=== PATIENT | female | born 1950 ===

== ENCOUNTER 2022-11-04 15:41 | Inpatient (IN) | payer OTHER ==
[2022-11-04] VITALS: BP 136/61; PULSE 60; RESP 20; TEMP 98.1; O2SAT 94
[~2022-11-04] VITALS: Ht 170.2 cm; Wt 82.0 kg
[2022-11-04 17:17] LABS: Basophils # (auto) 0 10 ^3/uL (0-0.2); Basophils % (auto) 0.4 % (0.0-2.0); Eosinophils # (auto) 0 10 ^3/uL (0-0.8); Eosinophils % (auto) 0.5 % (0.0-7.0); Hematocrit 39.3 % (36.0-46.0); Hemoglobin 13.1 g/dL (12.2-16.2); Lymphocytes # (auto) 1.3 10 ^3/uL (0.4-5.4); Lymphocytes % (auto) 14.9 % (10.0-50.0); Mean Corpuscular Hemoglobin 31.1 pg (28.0-32.0); Mean Corpuscular Hgb Conc. 33.3 g/dL (32.0-36.0); Mean Corpuscular Volume 93.4 fL (80.0-100.0); Monocytes # (auto) 0.6 10 ^3/uL (0-1.3); Neutrophils # (auto) 6.5 10 ^3/uL (1.6-8.6); Neutrophils % (auto) 77.2 % (37.0-80.0); Nucleated Red Blood Cells % 0.1 %; Red Cell Distribution Width 14.1 % (11.8-14.3); White Blood Cell 8.4 10^3/uL (4.4-10.8)
[2022-11-04 17:20] VITALS: O2SAT 94
[2022-11-04 17:57] LABS: Acetaminophen < 2.0 ug/mL (10-30)
[2022-11-04 17:59] LABS: Albumin 2.8 g/dL (3.4-5.0); Anion Gap 4 (5-15); Blood Alcohol < 3.0 mg/dL (<10); Blood Urea Nitrogen 29 mg/dL (7-18); Calcium 8.3 mg/dL (8.5-10.1); Carbon Dioxide 26 mmol/L (21-32); Chloride 110 mmol/L (98-107); Glucose 122 mg/dL (74-106); Potassium 3.4 mmol/L (3.5-5.1); Sodium 140 mmol/L (136-145)
[2022-11-04 18:02] LABS: Alanine Aminotransferase 11 U/L (13-56); Alkaline Phosphatase 62 U/L (45-117); Aspartate Aminotransferase 22 U/L (15-37); Bilirubin, Total 0.7 mg/dL (0.2-1.0); GFR African American 70 mL/min; GFR Non-African American 58 mL/min; Total Protein 6.6 g/dL (6.4-8.2)
[2022-11-04 18:56] LABS: Urine Bacteria NONE SEEN /hpf (None Seen); Urine Blood Negative /uL (Negative); Urine Hyaline Cast FEW /lpf (0 - 2); Urine Mucus FEW (None Seen); Urine Specific Gravity 1.028 (1.001-1.035); Urine WBC 25 /hpf (0 - 5)
[2022-11-04] MEDS: POTASSIUM CHL 20MEQ/100ML 100 ML IV SCH ×2 (19:07→20:45)
[2022-11-04 19:13] LABS: Amphetamine Screen, Urine NEGATIVE (NEGATIVE); Barbiturate Scree,Urine NEGATIVE (NEGATIVE); Benzodiazephine Screen, Urine POSITIVE (NEGATIVE); Cannabinoid Screen, Urine NEGATIVE (NEGATIVE); Cocaine Screen, Urine NEGATIVE (NEGATIVE)
[2022-11-04 19:15] VITALS: PULSE 59; RESP 20; O2SAT 93
[2022-11-04 19:15] LABS: Alcohol, Urine < 3.0 mg/dL (0-10); Opiate Scree,Urine NEGATIVE (NEGATIVE); Phencyclidine Screen, Urine NEGATIVE (NEGATIVE)
[2022-11-04] MEDS ORDERED: FUROSEMIDE 40 MG/4 ML VIAL IV ONE (20:30)
[2022-11-04] MEDS ORDERED: ONDANSETRON HCL 4 MG/2 ML VIAL IV PRN (22:00)
[2022-11-04] MEDS ORDERED: ALBUTEROL SULF 2.5 MG/0.5ML(0.5%) NEB SOLN NEB PRN (22:00)
[2022-11-04] MEDS ORDERED: POTASSIUM CHL 20MEQ/100ML 100 ML IV ONE (22:00)
[2022-11-04] MEDS ORDERED: AZITHROMYCIN 500MG/ 250ML 250 ML IV ONE (22:00)
[2022-11-04] MEDS ORDERED: cefTRIAXone 1GM/50ML D5W 50 ML IV ONE (22:00)
[2022-11-04] MEDS: CARBIDOPA W LEVODOPA 25/100mg TABLET PO SCH (23:01)
[2022-11-04] MEDS: DONEPEZIL HYDROCHLORIDE 5 MG TAB PO SCH (23:01)
[2022-11-05] VITALS (9 sets, daily range): BP systolic 134–156; BP diastolic 67–91; PULSE 55–66; RESP 16–18; TEMP 97.4–98.8; O2SAT 92–96
[2022-11-05] MEDS: CARBIDOPA W LEVODOPA 25/100mg TABLET PO SCH ×3 (05:49→23:28)
[2022-11-05] MEDS ORDERED: ESCI1TAB37 PO (06:09)
[2022-11-05] MEDS ORDERED: FAMO40TA7 PO (06:09)
[2022-11-05] MEDS ORDERED: NAP500T PO (06:09)
[2022-11-05] MEDS ORDERED: MECL1TAB32 PO (06:09)
[2022-11-05] MEDS ORDERED: MET25T PO (06:09)
[2022-11-05] MEDS ORDERED: ARIP1TAB58 PO (06:09)
[2022-11-05] MEDS ORDERED: RASA1TAB4 PO (06:09)
[2022-11-05] MEDS ORDERED: DONE1TAB88 PO (06:09)
[2022-11-05] MEDS ORDERED: CARB25TA77 (06:09)
[2022-11-05] MEDS ORDERED: PRAM0.752 (06:09)
[2022-11-05] MEDS ORDERED: TIZA-142 PO (06:09)
[2022-11-05] MEDS ORDERED: ALPR0.254 PO (06:09)
[2022-11-05] MEDS ORDERED: ENTA200T4 PO (06:09)
[2022-11-05 06:25] LABS: Basophils # (auto) 0 10 ^3/uL (0-0.2); Basophils % (auto) 0.3 % (0.0-2.0); Eosinophils # (auto) 0.1 10 ^3/uL (0-0.8); Eosinophils % (auto) 1.4 % (0.0-7.0); Hematocrit 36.7 % (36.0-46.0); Hemoglobin 12.2 g/dL (12.2-16.2); Lymphocytes # (auto) 2.1 10 ^3/uL (0.4-5.4); Lymphocytes % (auto) 27.8 % (10.0-50.0); Mean Corpuscular Hemoglobin 31.3 pg (28.0-32.0); Mean Corpuscular Hgb Conc. 33.3 g/dL (32.0-36.0); Monocytes # (auto) 0.8 10 ^3/uL (0-1.3); Monocytes % (auto) 10.3 % (0.0-12.0); Neutrophils # (auto) 4.5 10 ^3/uL (1.6-8.6); Neutrophils % (auto) 60.2 % (37.0-80.0); Nucleated Red Blood Cells % 0.2 %; Red Cell Distribution Width 14.1 % (11.8-14.3); White Blood Cell 7.5 10^3/uL (4.4-10.8)
[2022-11-05 06:40] LABS: Calcium 7.9 mg/dL (8.5-10.1); Potassium 3.2 mmol/L (3.5-5.1)
[2022-11-05 06:43] LABS: BUN/Creatinine Ratio 31.3 (10.0-20.0)
[2022-11-05] MEDS: cefTRIAXone 1GM/50ML D5W 50 ML IV SCH (09:21)
[2022-11-05] MEDS: METOPROLOL SUCCINATE XL 50 MG TAB PO SCH (09:24)
[2022-11-05] MEDS: ENOXAPARIN SOD 40 MG/0.4 ML SYRINGE SC SCH (09:28)
[2022-11-05] MEDS: AZITHROMYCIN 500MG/ 250ML 250 ML IV SCH (09:30)
[2022-11-05] MEDS ORDERED: FUROSEMIDE 20 MG TAB PO SCH (10:00)
[2022-11-05] MEDS: ACETAMINOPHEN 325 MG TAB PO PRN (13:09)
[2022-11-05] MEDS ORDERED: POTASSIUM CHL 20 Meq TABLET PO ONE (14:45)
[2022-11-05] MEDS ORDERED: MAGNESIUM OXIDE 400 MG TAB PO ONE (14:45)
[2022-11-05] MEDS ORDERED: NAPR-759 PO (15:25)
[2022-11-05] MEDS ORDERED: MECLIZINE HCL 25 MG TAB PO PRN (15:30)
[2022-11-05] MEDS ORDERED: TIZANIDINE HYDROCHLORIDE 4 MG PO PRN (15:30)
[2022-11-05] MEDS ORDERED: NAPROXEN 500 MG TAB PO PRN (17:00)
[2022-11-05] MEDS ORDERED: NAPROXEN 500 MG TAB PO SCH (22:00)
[2022-11-05] MEDS: ARIPIPRAZOLE 2 MG PO SCH (22:00)
[2022-11-05] MEDS ORDERED: PATIENTS OWN MEDICATION PO SCH (22:00)
[2022-11-05] MEDS: PRAMIPEXOLE DIHYDROCHLORIDE MO 0.25 MG TAB PO SCH (23:28)
[2022-11-05] MEDS: DONEPEZIL HYDROCHLORIDE 5 MG TAB PO SCH (23:28)
[2022-11-05] MEDS: ENTACAPONE 200 MG PO SCH (23:29)
[2022-11-06] VITALS (8 sets, daily range): BP systolic 117–168; BP diastolic 52–87; PULSE 55–74; RESP 15–18; TEMP 97.6–98.4; O2SAT 92–98
[2022-11-06] MEDS: CARBIDOPA W LEVODOPA 25/100mg TABLET PO SCH ×3 (05:53→22:34)
[2022-11-06] MEDS: ENTACAPONE 200 MG PO SCH ×3 (05:54→22:35)
[2022-11-06 06:30] LABS: Albumin 2.6 g/dL (3.4-5.0); Magnesium 2.5 mg/dL (1.6-2.6); Potassium 4.6 mmol/L (3.5-5.1)
[2022-11-06 06:33] LABS: BUN/Creatinine Ratio 32.4 (10.0-20.0); Bilirubin, Total 0.4 mg/dL (0.2-1.0); Total Protein 5.7 g/dL (6.4-8.2)
[2022-11-06 06:48] LABS: Basophils # (auto) 0.1 10 ^3/uL (0-0.2); Basophils % (auto) 0.7 % (0.0-2.0); Eosinophils # (auto) 0.2 10 ^3/uL (0-0.8); Eosinophils % (auto) 2.3 % (0.0-7.0); Hematocrit 39.5 % (36.0-46.0); Hemoglobin 12.8 g/dL (12.2-16.2); Lymphocytes # (auto) 2.6 10 ^3/uL (0.4-5.4); Lymphocytes % (auto) 25.2 % (10.0-50.0); Mean Corpuscular Hemoglobin 31.8 pg (28.0-32.0); Mean Corpuscular Hgb Conc. 32.6 g/dL (32.0-36.0); Mean Corpuscular Volume 97.7 fL (80.0-100.0); Monocytes # (auto) 0.9 10 ^3/uL (0-1.3); Monocytes % (auto) 8.4 % (0.0-12.0); Neutrophils # (auto) 6.5 10 ^3/uL (1.6-8.6); Neutrophils % (auto) 63.4 % (37.0-80.0); Nucleated Red Blood Cells % 1.2 %; Red Blood Cells 4.04 10^6/uL (4.0-5.20); Red Cell Distribution Width 15.2 % (11.8-14.3); White Blood Cell 10.2 10^3/uL (4.4-10.8)
[2022-11-06] MEDS: ACETAMINOPHEN 325 MG TAB PO PRN ×2 (09:36→18:15)
[2022-11-06] MEDS: METOPROLOL SUCCINATE XL 50 MG TAB PO SCH (09:38)
[2022-11-06] MEDS: FUROSEMIDE 20 MG/2 ML VIAL IV SCH (09:40)
[2022-11-06] MEDS: AZITHROMYCIN 500MG/ 250ML 250 ML IV SCH (09:40)
[2022-11-06] MEDS: cefTRIAXone 1GM/50ML D5W 50 ML IV SCH (09:45)
[2022-11-06] MEDS: ENOXAPARIN SOD 40 MG/0.4 ML SYRINGE SC SCH (09:46)
[2022-11-06] MEDS: RASAGILINE MESYLATE 1 MG PO SCH (09:46)
[2022-11-06] MEDS: PRAMIPEXOLE DIHYDROCHLORIDE MO 0.25 MG TAB PO SCH ×2 (10:00→22:35)
[2022-11-06] MEDS: hydrALAZINE HCL 25 MG TAB PO SCH ×2 (12:05→22:34)
[2022-11-06] MEDS: MAALOX PLUS or MAALOX 30 ML PO PRN ×2 (12:06→22:33)
[2022-11-06] MEDS: ARIPIPRAZOLE 2 MG PO SCH (22:00)
[2022-11-06] MEDS: DONEPEZIL HYDROCHLORIDE 5 MG TAB PO SCH (22:35)
[2022-11-07 05:00] VITALS: BP 137/62; PULSE 68; RESP 18; TEMP 97.5; O2SAT 95
[2022-11-07] MEDS: CARBIDOPA W LEVODOPA 25/100mg TABLET PO SCH ×2 (06:22→13:48)
[2022-11-07 08:38] VITALS: BP 146/70; PULSE 68; RESP 16; TEMP 98; O2SAT 95
[2022-11-07] MEDS: ENOXAPARIN SOD 40 MG/0.4 ML SYRINGE SC SCH (08:42)
[2022-11-07] MEDS: FUROSEMIDE 20 MG/2 ML VIAL IV SCH (08:42)
[2022-11-07] MEDS: cefTRIAXone 1GM/50ML D5W 50 ML IV SCH (08:42)
[2022-11-07] MEDS: hydrALAZINE HCL 25 MG TAB PO SCH (08:43)
[2022-11-07] MEDS: METOPROLOL SUCCINATE XL 50 MG TAB PO SCH (08:43)
[2022-11-07] MEDS: RASAGILINE MESYLATE 1 MG PO SCH (08:43)
[2022-11-07] MEDS ORDERED: AZITHROMYCIN 250 MG TAB PO SCH (10:00)
[2022-11-07] MEDS: ACETAMINOPHEN 325 MG TAB PO PRN ×2 (10:44→18:09)
[2022-11-07 12:52] VITALS: BP 126/66; PULSE 70; RESP 16; TEMP 97.9; O2SAT 95
[2022-11-07] MEDS: ENTACAPONE 200 MG PO SCH (13:48)
[2022-11-07 16:02] VITALS: BP 119/54; PULSE 72; RESP 15; TEMP 97.9; O2SAT 96
== END 2022-11-07 19:45 | DRG 70 ==
LOC: EDBD 15:41 → ER 15:41 → OVERFLOW 22:07 → WEST WING 11-05 02:54
PROVIDERS: ADMIT Internal Medicine; ATTEND Internal Medicine
DX: G93.41 Metabolic encephalopathy (principal); E43 Unspecified severe protein-calorie malnutrition; J18.9 Pneumonia, unspecified organism; I50.41 Acute combined systolic (congestive) and diastolic (congestive) heart failure; F23 Brief psychotic disorder; N39.0 Urinary tract infection, site not specified; G20 Parkinson's disease; E87.6 Hypokalemia; I11.0 Hypertensive heart disease with heart failure; Z20.822 Contact with and (suspected) exposure to COVID-19; I27.20 Pulmonary hypertension, unspecified; Z88.6 Allergy status to analgesic agent; Z68.28 Body mass index [BMI] 28.0-28.9, adult
CPT/HCPCS: 36415; 70450; 71045; 80048; 80053; 80307; 80320; 80329; 81001; 82306; 83036; 83735; 83880; 84443; 84484; 85025; 87086; 87426; 93005; 93306; 97110; 97116; 97163; 97530; 99291; G0378; J0696; J3480

== ENCOUNTER 2024-06-06 01:21 | Inpatient (IN) | payer MEDICARE, OTHER ==
[~2024-06-06] VITALS: Ht 167.6 cm; Wt 75.9 kg
[~2024-06-06 01:21] MED LIST: ALPR0.254 PO; ARIP2TAB48 PO; CARB25TA77; DONE1TAB88 PO; ENTA200T4 PO; ESCI1TAB37 PO; FAMO40TA7 PO; MECL-90 PO; MET25T PO; NAP500T PO; NAPR-759 PO; PRAM0.752; RASA1TAB4 PO; TIZA-142 PO
[2024-06-06] MEDS: HYDROcodone-ACET 5/325MG TAB PO ONE (03:16)
[2024-06-06] MEDS: KETOROLAC TROMETH 60MG/2ML VIAL IM ONE (03:16)
--- NOTE | 2024-06-06 03:16 | ED.PDOC ---
Back pain HPI HPI Comments THIS IS A 73-YEAR-OLD FEMALE WITH HISTORY OF PARKINSON'S, PRESENTS IN THE ED WITH CHIEF COMPLAINT OF CHRONIC LOW BACK PAIN. PER , PT WAS RECENTLY SEEN AT ANOTHER FACILITY FOR SIMILAR S/S, ASSIGNED HOSPICE CARE BUT REFUSED. PT STATED SHE IS UNABLE TO SLEEP D/T PAIN. AND PT REQUESTING ASSISTANCE WITH PAIN MANAGEMENT. PATIENT HAS CURRENT REFERRAL FOR MRI OF THE LUMBAR SPINE ON 06/14/2024. CURRENTLY TAKING TRAMADOL 100 MG AND LYRICA WITH LITTLE RELIEF.. PATIENT RATES PAIN 10/10 ON PAIN SCALE SHARP SHOOTING TYPE PAIN BILATERAL LOWER BACK SHOOTING DOWN INTO LATERAL HIP, THIGH DOWN TO BILATERAL SHINS. INTERMITTENT NUMBNESS. USES A WALKER WITH DIFFICULTY. STATES PATIENT NEEDS ASSISTANCE WITH HER ADLS DIFFICULTY GOING TO THE BATHROOM GETTING UP, DRESSING HERSELF AND AMBULATING AROUND THE HOUSE. HAS BEEN ALSO REPORTS POSSIBLE HISTORY OF PARKINSON DISEASE DOES NOTE PATIENT DOES COMPLAIN OF BILATERAL LOWER LEG WEAKNESS. NO KNOWN INJURY, SADDLE ANESTHESIA, LOSS OF BOWEL OR BLADDER CONTROL, FEVER, CHILLS, ABDOMINAL PAIN, DIFFICULTY BREATHING, SHORTNESS OF BREATH, OR DIZZINESS. Chief Complaint: Lower Extremity Time Seen by MD: 01:50 Reviewed Notes: Nurses Notes, Medications, Allergies Allergies: Coded Allergies: Aspirin (Verified Allergy, Unknown, 06/06/24) Information Source: Patient, Spouse Mode of Arrival: Wheelchair Past Medical History PAST MEDICAL HISTORY: High Lipids, HTN Past Medical History (Other): PARKINSON'S Surgical History: Denies all surgeries Surgical History (Other): Laminectomy L4-L5 level TECHNOLOGY LAB TEACHER History: No Pertinent TECHNOLOGY LAB TEACHER History Family History Family History: Reviewed,noncontributory to illness Social History Smoker: Non-Smoker Alcohol: Denies ETOH Use Drugs: Denies Drug Use Constitutional: denies: chills, diaphoresis, fatigue, fever, malaise, sweats, weakness, others EENTM: denies: blurred vision, double vision, ear bleeding, ear discharge, ear drainage, ear pain, ear ringing, eye pain, eye redness, hearing loss, mouth pain, mouth swelling, nasal discharge, nose bleeding, nose congestion, nose pain, photophobia, tearing, throat pain, throat swelling, voice changes, others Respiratory: denies: cough, hemoptysis, orthopnea, SOB at rest, shortness of breath, SOB with excertion, stridor, wheezing, others Cardiovascular: denies: chest pain, dizzy spells, diaphoresis, Dyspnea on exertion, edema, irregular heart beat, left arm pain, lightheadedness, palpitations, PND, syncope, others Gastrointestinal: denies: abdomen distended, abdominal pain, blood streaked bowels, constipated, diarrhea, dysphagia, difficulty swallowing, hematemesis, melena, nausea, poor appetite, poor fluid intake, rectal bleeding, rectal pain, vomiting, others Genitourinary: denies: abnormal vagina bleeding, burning, dyspareunia, dysuria, flank pain, frequency, hematuria, incontinence, pain, , vagina discharge, urgency, others Neurological: denies: dizziness, fainting, headache, left sided numbness, left sided weakness, numbness, paresthesia, pre-existing deficit, right sided numbness, right sided weakness, seizure, speech problems, tingling, tremors, weakness, others Musculoskeletal: reports: back pain, others (right hip); denies: gout, joint pain, joint swelling, muscle pain, muscle stiffness, neck pain Integumetry: denies: bruises, change in color, change in hair/nails, dryness, laceration, lesions, lumps, rash, wounds, others Allergic/Immunocompromised: denies: Difficulty Healing, Frequent Infections, Hives, Itching, others Hematologic/Lymphatic: denies: anemia, blood clots, easy bleeding, easy bruising, swollen glands, others Endocrine: denies: excessive hunger, excessive sweating, excessive thirst, excessive urination, flushing, intolerance to cold, intolerance to heat, unexplained weight gain, unexplained weight loss, others Psychiatric: denies: anxiety, bipolar disorder, depression, hopeless, panic disorder, schizophrenia, sleepless, suicidal, others Physical Exam General Appearance: No Apparent Distress, Normal HEENT: Normal ENT Inspection, Pharynx Normal, TMs Normal Neck: Full Range of Motion, Non-Tender Respiratory: Lungs Clear, No Respiratory Distress, Normal Breath Sounds Cardiovascular: No Edema, No JVD, No Murmur, No Gallop, Normal Peripheral Pulses, Regular Rate/Rhythm Breast Exam: Deferred Gastrointestinal: No Organomegaly, Non Tender, No Pulsatile Mass, Normal Bowel Sounds, Soft Genitalia: Deferred Pelvic: Deferred Rectal: Deferred Extremities: No calf tenderness, Normal capillary refill, Normal inspection, Normal range of motion, Non-tender, No pedal edema Musculoskeletal : Location: Bilateral Extremity Location: Back (MODERATE TENDERNESS ON PALPATION LUMBAR SPINE L 3 THROUGH L5 CREPITUS OR STEP-OFFS. TENDERNESS OVER PARASPINAL MUSCLES WITH NOTED SPASMS. ABRASIONS, LESIONS, ECCHYMOSIS, OR LACERATIONS. POSITIVE STRAIGHT LEG RAISE BILATERAL L4-L5 PATTERN. STRENGTH SENSORY MOTION INTACT POSITIVE PEDAL PULSES) Apperance: Normal Neurologic: Alert, customer success specialist II-XII nml as Tested, No Motor Deficits, Normal Affect, Normal Mood, No Sensory Deficits Cerebellar Function: Normal Reflexes: Normal Skin: Dry, Normal Color, Warm Lymphatic: No Adenopathy Was a procedure done? Was a procedure done?: No Back Pain Differential Dx Differential Diagnosis: Fracture, Musculoskeletal Pain, Strain X-Ray, Labs, Meds, VS Vital Signs Date Time Temp Pulse Resp B/P (MAP) Pulse Ox O2 Delivery O2 Flow Rate FiO2 06/06/24 03:47 63 16 95 Room Air 06/06/24 03:42 97.4 63 16 137/55 (82) 95 97.4 06/06/24 02:41 97.7 63 20 104/68 (80) 96 Current Medications Medications (Trade) Dose Ordered Sig/Acosta Route Start Time Stop Time Status Last Admin Acetaminophen/ Hydrocodone Bitart ([place] 5/325MG Tab) 1 tab ONCE ONCE PO 06/06/24 03:15 06/06/24 03:16 DC 06/06/24 03:16 Ketorolac Tromethamine (Toradol Injection) 30 mg ONCE ONCE IM 06/06/24 03:15 06/06/24 03:16 DC 06/06/24 03:16 X-Ray, Labs, Meds, VS Comment CT lumbar spine shows multilevel degenerative disc disease. L4-L5 neural foraminal stenosis abutting against nerves right side greater than left side. History of L4-L5 laminectomy Patient given Toradol 30 mg IM without any relief in pain and function reports pain 10/10. Decadron 10 mg IM given. Morphine 2 mg ordered however patient's current blood pressure unable to tolerate. Reassess police Hep-Lock and patient transferred to [facility] for monitoring and pain management. Admit for intractable pain lumbar radiculopathy. Consider MRI in the morning. Time of 1ST Reevaluation: 04:39 Reevaluation 1ST: Improved Patient Education/Counseling: Diagnosis, Treatment, Prognosis, Need For Follow Up Family Education/Counseling: Diagnosis, Treatment, Prognosis, Need For Follow Up Departure 1 Departure Time of Disposition: 04:35 Impression: Primary Impression: Intractable back pain Additional Impressions: Bilateral lumbar radiculopathy Neural foraminal stenosis of lumbar spine Multilevel degenerative joint disease of spine Disposition: 09 ADMITTED INPATIENT Condition: Stable Discharged With: Spouse Critical Care Note Critical Care Time?: No Stability Stability form required: CORNELIO Alexis Jun 06, 2024 03:16
[2024-06-06] MEDS ORDERED: MORPHINE SULFATE INJ 2 MG/ml SYRG IM ONE (03:45)
--- NOTE | 2024-06-06 04:30 | DVH ---
INDICATION: Pain COMPARISON: None TECHNIQUE: CT of the right hip, left hip, and lumbar spine was performed without contrast. Multi plan ar reformatted images were obtained and reviewed. All CT scans at this medical facility are performed using dose modulation techniques as appropriate t o a performed exam including the following: Automated exposure control was utilized; adjustment of th e MA and/or KV according to patient size; and use of iterative reconstruction technique. Radiation Dose Information: CT Dose: CTDI volume is 15.5+ 18.4+ 34.1 mGy. Dose-length product is 483.7+ 494.6+ 1252.8 mGy*cm FINDINGS: Right hip: No acute fracture or dislocation. Mild degenerative changes with narrowing of the joint sp lyric and subchondral cystic changes of the femoral head. Small spur or osseous fragment within the alexander perior joint space adjacent to the superior aspect of the acetabulum. Superior acetabular spur. Left hip: mild degenerative changes with acetabular spurs and mild narrowing of the joint space predo minantly of the inferior aspect. No acute fracture or dislocation. Visualized portions of the bony pelvis appear intact. Lumbar spine: Laminectomy at L4. Vertebral body height and alignment is relatively maintained. L1-L2: Disc osteophyte complex with mild impression upon the ventral thecal sac. Neural foramina jd ear patent. L2-L3 disc osteophyte complex with mild impression on the ventral thecal sac and mild fac et arthropathy. Neural foramina appear patent. L3-L4, diffuse disc bulge with mild impression on the ventral thecal sac. L4-L5: Diffuse disc bulge with moderate impression on the ventral thecal sac moderate neural foramina l stenosis right greater than left with abutment of the exiting nerve roots. L5-S1, small disc bulge and mild facet arthropathy with mild impression on the ventral thecal sac, ne ural foramina appear patent. The uterus is markedly bulky likely with multiple fibroids. IMPRESSION: 1. Mild degenerative changes of the right and left hip, more pronounced on the right. 2. Degenerative disc disease with prior laminectomy at L4 within the lumbar spine. Moderate neural fo raminal stenosis with abutment of the exiting nerve roots at L4-L5.
[2024-06-06 05:37] VITALS: PULSE 87; RESP 17; O2SAT 98
[2024-06-06 07:30] VITALS: PULSE 62; RESP 16; TEMP 97.9; O2SAT 97
[2024-06-06 09:28] LABS: Basophils # (auto) 0.1 10 ^3/uL (0-0.2); Basophils % (auto) 0.5 % (0.0-2.0); Eosinophils # (auto) 0 10 ^3/uL (0-0.8); Hematocrit 39.9 % (36.0-46.0); Hemoglobin 13.3 g/dL (12.2-16.2); Lymphocytes # (auto) 3.5 10 ^3/uL (0.4-5.4); Lymphocytes % (auto) 28.7 % (10.0-50.0); Mean Corpuscular Hgb Conc. 33.3 g/dL (32.0-36.0); Mean Corpuscular Volume 93.2 fL (80.0-100.0); Monocytes # (auto) 0.8 10 ^3/uL (0-1.3); Monocytes % (auto) 6.5 % (0.0-12.0); Neutrophils # (auto) 7.8 10 ^3/uL (1.6-8.6); Neutrophils % (auto) 64.3 % (37.0-80.0); Nucleated Red Blood Cells % 0.1 %; Platelet Count (auto) 233 10^3/uL (140-450); Red Blood Cells 4.28 10^6/uL (4.0-5.20); Red Cell Distribution Width 16.1 % (11.8-14.3); White Blood Cell 12.2 10^3/uL (4.4-10.8)
[2024-06-06] MEDS: MORPHINE SULFATE INJ 2 MG/ml SYRG IV ONE (09:44)
[2024-06-06 09:47] LABS: Alkaline Phosphatase 70 U/L (46-116); Anion Gap 4 (5-15); Aspartate Aminotransferase 13 U/L (13-40); BUN/Creatinine Ratio 28.9 (10.0-20.0); Calcium 9.4 mg/dL (8.7-10.4); Carbon Dioxide 25 mmol/L (20-31); Glucose 100 mg/dL (74-106); Sodium 139 mmol/L (136-145)
[2024-06-06 09:48] LABS: Albumin 3.9 g/dL (3.2-4.8); Bilirubin, Total 0.4 mg/dL (0.2-1.0); Total Protein 6.4 g/dL (5.7-8.2)
[2024-06-06 09:49] LABS: Alanine Aminotransferase < 9 U/L (7-40); Blood Urea Nitrogen 41 mg/dL (9-23); Chloride 110 mmol/L (98-107)
[2024-06-06] MEDS ORDERED: MORPHINE SULFATE 4 MG/ML SYR/VIAL IV PRN (10:45)
--- NOTE | 2024-06-06 10:58 | DVHHP2 ---
History of Present Illness Reason for Visit: Low back pain History of Present Illness This 73-year-old female with past medical history of chronic low back pain presents in the ED with a chief complaint of uncontrollable back pain. The patient reports that she went to her pain management a few days ago and was started on tramadol and Lyrica with mild relief. The patient also states that she has an upcoming MRI of lumbar spine test with PCP. The patient states unbearable lower back pain causing her to stay in bed and unable to walk for the past two days. Denies bladder or bowel symptoms. Denies fever, abdominal pain, nausea, or other acute symptoms. Past medical history of hypertension, hyperlipidemia, Parkinson's, anxiety, and chronic back pain. Past Medical History As stated in HPI Past Surgical History Laminectomy L4-L5 Family History Reviewed, non-contributory to the management of this case. Past Social History The patient lives at home, denies smoking, alcohol or illicit drugs abuse. Review of Systems Constitutional: Yes: Malaise; No: Fever, Chills, Sweats, Weakness, Other Eyes: No: Pain, Vision change, Conjunctivae inflammation, Eyelid inflammation, Other, Redness ENT: No: Ear pain, Ear discharge, Nose pain, Nose discharge, Nose congestion, Mouth pain, Mouth swelling, Throat pain, Throat swelling, Other Respiratory: No: Cough, Dry, Shortness of breath, SOB with excertion, Wheezing, Hemoptysis, Pleuritic Pain, Sputum, Wheezing, Other Cardiovascular: No: Chest Pain, Palpitations, Orthopnea, Paroxysmal Noc. Dyspnea, Edema, Lt Headedness, Other Gastrointestinal: No: Nausea, Vomiting, Abdominal Pain, Diarrhea, Constipation, Melena, Hematochezia, Other Genitourinary: No Dysuria, No Frequency, No Incontinence, No Hematuria, No Retention, No Other Musculoskeletal: back pain; No: other, neck pain, shoulder pain, arm pain, hand pain, leg pain, foot pain Skin: No: Rash, Lesions, Jaundice, Bruising, Other Allergies: Coded Allergies: Aspirin (Verified Allergy, Unknown, 06/06/24) Medications Current Medications Medications Dose Ordered Sig/Acosta Route Start Time Stop Time Status Last Admin Dose Admin Morphine Sulfate 4 mg Q4HP PRN IV 06/06/24 10:45 UNV Exam Vital Signs Vital Signs Date Time Temp Pulse Resp B/P (MAP) Pulse Ox O2 Delivery O2 Flow Rate FiO2 06/06/24 10:14 71 16 115/55 06/06/24 10:00 97 06/06/24 07:30 97.9 97.9 06/06/24 07:30 Room Air* 0 21 General Appearance: Alert, Oriented X3, Cooperative, moderate distress HEENT: Atraumatic, PERRLA, EOMI, Mucous membr. moist/pink, Other (s/p Blepharoplasty) Respiratory: Clear to auscultation, Normal air movement Cardiovascular: Regular rate, Normal S1, Normal S2 Abdominal: Normal bowel sounds, Soft, No tenderness Extremities: Normal pulses, No tenderness/swelling Skin: No rashes, No breakdown, No significant lesion Neuro: Normal tone Psych/Mental Status: Mental status NL Labs/Xrays Labs Test 06/06/24 10:30 06/06/24 09:14 Range/Units White Blood Count 12.2 H 4.4-10.8 10^3/uL Red Blood Count 4.28 4.0-5.20 10^6/uL Hemoglobin 13.3 12.2-16.2 g/dL Hematocrit 39.9 36.0-46.0 % Mean Corpuscular Volume 93.2 80.0-100.0 fL Mean Corpuscular Hemoglobin 31.0 28.0-32.0 pg Mean Corpuscular Hemoglobin Concent 33.3 32.0-36.0 g/dL Red Cell Distribution Width 16.1 H 11.8-14.3 % Platelet Count 233 140-450 10^3/uL Mean Platelet Volume 8.9 6.9-10.8 fL Neutrophils (%) (Auto) 64.3 37.0-80.0 % Lymphocytes (%) (Auto) 28.7 10.0-50.0 % Monocytes (%) (Auto) 6.5 0.0-12.0 % Eosinophils (%) (Auto) 0.0 0.0-7.0 % Basophils (%) (Auto) 0.5 0.0-2.0 % Neutrophils # (Auto) 7.8 1.6-8.6 10 ^3/uL Lymphocytes # (Auto) 3.5 0.4-5.4 10 ^3/uL Monocytes # (Auto) 0.8 0-1.3 10 ^3/uL Eosinophils # (Auto) 0 0-0.8 10 ^3/uL Basophils # (Auto) 0.1 0-0.2 10 ^3/uL Nucleated Red Blood Cells 0.1 % Sodium Level 139 136-145 mmol/L Potassium Level 4.0 3.5-5.1 mmol/L Chloride Level 110 H 98-107 mmol/L Carbon Dioxide Level 25 20-31 mmol/L Anion Gap 4 L 5-15 Blood Urea Nitrogen 41 H 9-23 mg/dL Creatinine 1.42 H 0.550-1.02 mg/dL Glomerular Filtration Rate Calc 39 >90 mL/min BUN/Creatinine Ratio 28.9 H 10.0-20.0 Serum Glucose 100 74-106 mg/dL Calcium Level 9.4 8.7-10.4 mg/dL Total Bilirubin 0.4 0.2-1.0 mg/dL Aspartate Amino Transferase (AST) 13 13-40 U/L Alanine Aminotransferase (ALT) < 9 7-40 U/L Alkaline Phosphatase 70 46-116 U/L Total Protein 6.4 5.7-8.2 g/dL Albumin 3.9 3.2-4.8 g/dL PROCEDURE(s): LS2CT - LS SPINE WO CONTRAST REASON: Lumbar radiculopathy ORDER NUMBER(s): [id number], ACCESSION NUMBER(s): [id number] INDICATION: Pain COMPARISON: None TECHNIQUE: CT of the right hip, left hip, and lumbar spine was performed without contrast. Multi planar reformatted images were obtained and reviewed. All CT scans at this medical facility are performed using dose modulation techniques as appropriate to a performed exam including the following: Automated exposure control was utilized; adjustment of the MA and/or KV according to patient size; and use of iterative reconstruction technique. Radiation Dose Information: CT Dose: CTDI volume is 15.5+ 18.4+ 34.1 mGy. Dose-length product is 483.7+ 494.6+ 1252.8 mGy*cm FINDINGS: Right hip: No acute fracture or dislocation. Mild degenerative changes with narrowing of the joint space and subchondral cystic changes of the femoral head. Small spur or osseous fragment within the superior joint space adjacent to the superior aspect of the acetabulum. Superior acetabular spur. Left hip: mild degenerative changes with acetabular spurs and mild narrowing of the joint space predominantly of the inferior aspect. No acute fracture or dislocation. Visualized portions of the bony pelvis appear intact. Lumbar spine: Laminectomy at L4. Vertebral body height and alignment is relatively maintained. L1-L2: Disc osteophyte complex with mild impression upon the ventral thecal sac. Neural foramina appear patent. L2-L3 disc osteophyte complex with mild impression on the ventral thecal sac and mild facet arthropathy. Neural foramin a appear patent. L3-L4, diffuse disc bulge with mild impression on the ventral thecal sac. L4-L5: Diffuse disc bulge with moderate impression on the ventral thecal sac moderate neural foraminal stenosis right greater than left with abutment of the exiting nerve roots. L5-S1, small disc bulge and mild facet arthropathy with mild impression on the ventral thecal sac, neural foramina appear patent. The uterus is markedly bulky likely with multiple fibroids. IMPRESSION: 1. Mild degenerative changes of the right and left hip, more pronounced on the right. 2. Degenerative disc disease with prior laminectomy at L4 within the lumbar spine. Moderate neural foraminal stenosis with abutment of the exiting nerve roots at L4-L5. Assessment/Plan Assessment/Plan # acute on chronic lower back pain # Moderate neural foraminal stenosis with abutment of the exiting nerve roots at L4-L5. # Degenerative disc disease with prior laminectomy at L4 within the lumbar spine Admit to medical unit Pain control # leukocytosis, possible acute UTI UA pending Empiric antibiotic Ceftriaxone Blood and urine culture # hypertension Amlodipine Hydralazine as needed Monitor # hyperlipidemia Statins Lipid panel # anxiety Sertraline # s/p right Blepharoplasty monitor DVT prophylaxis Medical plan discussed with patient and spouse Plan discussed with: Patient My Orders Orders - CHARLES LAFLEUR Procedure Category Date Status Time Urinalysis LAB 06/06/24 In Process 10:31 Admit ADMIT 06/06/24 Verified 10:53 Code Status CODE 06/06/24 Verified 10:53 Hydrocodone-Acet PHA 06/06/24 Verified 5/325mg Tab (Ballinger 11:00 Ondansetron Hcl PHA 06/06/24 Verified (Zofran) 11:00 Enoxaparin Sodium PHA 06/07/24 Verified (Lovenox) 10:00 Date of Service: Jun 06, 2024 Billing Provider: CHARLES LAFLEUR Common Visit Codes: [id number] INP/OBS CARE (HIGH) CHARLES LAFLEUR POWER HOUSE CONTROL ROOM OPERATOR Jun 06, 2024 10:58
[2024-06-06] MEDS ORDERED: HYDROcodone-ACET 5/325MG TAB PO PRN (11:00)
[2024-06-06] MEDS ORDERED: ACETAMINOPHEN 325 MG TAB PO PRN (11:00)
[2024-06-06] MEDS: cefTRIAXone 1GM/50ML D5W 50 ML IV ONE (11:07)
[2024-06-06] MEDS ORDERED: ATOR20TA50 PO (11:15)
[2024-06-06] MEDS ORDERED: SERT200C PO (11:15)
[2024-06-06] MEDS ORDERED: hydrALAZINE HCL 20 MG/ML VL IV PRN (11:15)
[2024-06-06] MEDS ORDERED: AMLO1TAB22 PO (11:15)
[2024-06-06 11:16] LABS: Urine Amorphous Crystal FEW /hpf (None Seen); Urine Bacteria FEW /hpf (None Seen); Urine Blood Negative /uL (Negative); Urine Color Yellow (Yellow); Urine Protein, UAD TRACE (Negative); Urine Squamous Epithelial Cell FEW /hpf (<5); Urine Urobilinogen Normal (Negative); Urine WBC 4 /HPF (0-5)
[2024-06-06 11:17] LABS: Urine Clarity Hazy (Clear)
[2024-06-06 11:18] LABS: Triglycerides 102 mg/dL (< 150)
[2024-06-06 11:20] LABS: Cholesterol 209 mg/dL (< 200); HDL Cholesterol 59 mg/dL (40-59); LDL Cholesterol 137 mg/dL (< 100)
[2024-06-06] MEDS: SERTRALINE HCL 50 MG TAB PO SCH (12:01)
[2024-06-06] MEDS: amLODIPine BESYLATE 5 MG TAB PO SCH (12:03)
[2024-06-06 16:00] VITALS: O2SAT 94
[2024-06-06] MEDS: ONDANSETRON HCL 4 MG/2 ML VIAL IV PRN (17:54)
[2024-06-06 17:56] VITALS: BP 135/73; PULSE 72; RESP 16
[2024-06-06] MEDS: MORPHINE SULFATE INJ 2 MG/ml SYRG IV PRN (17:56)
[2024-06-06] MEDS ORDERED: ATORVASTATIN 20 MG TAB PO SCH (22:00)
[2024-06-07] MEDS ORDERED: cefTRIAXone 1GM/50ML D5W 50 ML IV SCH (09:00)
[2024-06-07] MEDS ORDERED: ENOXAPARIN SOD 40 MG/0.4 ML SYRINGE SC SCH (10:00)
== END 2024-06-06 18:12 | disposition left against medical advice (07) | DRG 552 ==
LOC: ER 01:21 → MERGE 10:53 → OVERFLOW 10:53
PROVIDERS: ADMIT Registered Nurse; ATTEND Registered Nurse
DX: M48.061 Spinal stenosis, lumbar region without neurogenic claudication (principal); N39.0 Urinary tract infection, site not specified; I10 Essential (primary) hypertension; F41.9 Anxiety disorder, unspecified; Z53.29 Procedure and treatment not carried out because of patient's decision for other reasons; G20.A1 Parkinson's disease without dyskinesia, without mention of fluctuations; G89.29 Other chronic pain; M47.26 Other spondylosis with radiculopathy, lumbar region; E78.5 Hyperlipidemia, unspecified; M51.369 Other intervertebral disc degeneration, lumbar region without mention of lumbar back pain or lower extremity pain; D72.829 Elevated white blood cell count, unspecified; Z88.6 Allergy status to analgesic agent; Z79.899 Other long term (current) drug therapy
CPT/HCPCS: 36415; 72131; 73700; 80053; 80061; 81001; 85025; 87040; 87086; G0378; J1885; J2405

== ENCOUNTER 2024-09-09 10:13 | Inpatient (IN) | payer MEDICARE, OTHER ==
[~2024-09-09] VITALS: Ht 167.6 cm; Wt 71.5 kg
[~2024-09-09 10:13] MED LIST changes: +AMLO1TAB22 PO; +ATOR20TA50 PO; +SERT200C PO
--- NOTE | 2024-09-09 11:02 | ECG ---
[facility] Test Date: 2024-09-09 Test Time: 10:13:27 Pat Name: LEWIS LAMBERT Department: ED Room: Gender: F Machinist General: Gold : 1950 Requested By: KOFFI RAMÍREZ Order Number: [id number] Reading MD: Darien Nunez Measurements Intervals [place] Rate: 71 P: 34 NV: 132 QRS: 22 QRSD: 88 T: 36 QT: 399 QTc: 434 Interpretive Statements Sinus rhythm Electronically Signed On 09-09-2024 13:17:01 PDT by Darien Nunez Please click the below link to view image of tracing.
--- NOTE | 2024-09-09 11:04 | ED.PDOC ---
HPI (NEURO) HPI Comments 73y F who presents to the ED via EMS for chief complaint of generalized weakness. Per pt caregiver, pt was being taken to pain specialist appt today and caregiver states, pt suddenly felt weak and her legs gave out and pt down to the ground. Pt was caught by caregiver as she went to the ground with no associated loss of consciousness and did not hit her as she went to the ground and EMS was called to the scene. EMS noted pt was alert and oriented upon arrival with noted stable vitals. Pt only was complaining of weakness and spasms in her bilateral lower extremities, noting the pain was 6/10, with no associated exacerbating or relieving factors. Pt now in the ED, states she is also having lower abdominal pain, with no noted exacerbating or relieving factors. Pt denies any associated nausea, vomiting, diarrhea, fever, cough, chills or any associated symptoms. Pt caregiver states pt has been having decreased po intake due to the abdominal discomfort, increased weakness for the past 2-3 days and noted pt has been having "decreased concentration" with noted decreased ability to perform activates of daily living. Pt caregiver also states, he needs help taking care of pt but due to insurance, he has not been able to get help. Pt otherwise has noted history of Parkinson disease for which she is taking Meds currently. Pt otherwise denies any other symptoms at this time. Chief Complaint: General Weakness Time Seen by MD: 11:00 Primary Care Provider: ? 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 History Family History Family History: Reviewed,noncontributory to illness Social History Smoker: Non-Smoker Alcohol: Denies ETOH Use Drugs: Denies Drug Use Lives In: Home Constitutional: reports: malaise, weakness; denies: chills, diaphoresis, fatigue, fever, sweats, others EENTM: denies: blurred vision, double vision, ear bleeding, ear discharge, ear drainage, ear pain, ear ringing, eye pain, eye redness, hearing loss, mouth pain, mouth swelling, nasal discharge, nose bleeding, nose congestion, nose pain, photophobia, tearing, throat pain, throat swelling, voice changes, others Respiratory: denies: cough, hemoptysis, orthopnea, SOB at rest, shortness of breath, SOB with excertion, stridor, wheezing, others Cardiovascular: denies: chest pain, dizzy spells, diaphoresis, Dyspnea on exertion, edema, irregular heart beat, left arm pain, lightheadedness, palpitations, PND, syncope, others Gastrointestinal: reports: abdominal pain; denies: abdomen distended, blood streaked bowels, constipated, diarrhea, dysphagia, difficulty swallowing, hematemesis, melena, nausea, poor appetite, poor fluid intake, rectal bleeding, rectal pain, vomiting, others Genitourinary: denies: abnormal vagina bleeding, burning, dyspareunia, dysuria, flank pain, frequency, hematuria, incontinence, pain, , vagina discharge, urgency, others Neurological: denies: dizziness, fainting, headache, left sided numbness, left sided weakness, numbness, paresthesia, pre-existing deficit, right sided numbness, right sided weakness, seizure, speech problems, tingling, tremors, weakness, others Musculoskeletal: reports: muscle pain (b/l lower extremities); denies: back pain, gout, joint pain, joint swelling, muscle stiffness, neck pain, others Integumetry: denies: bruises, change in color, change in hair/nails, dryness, laceration, lesions, lumps, rash, wounds, others Allergic/Immunocompromised: denies: Difficulty Healing, Frequent Infections, Hives, Itching, others Hematologic/Lymphatic: denies: anemia, blood clots, easy bleeding, easy bruising, swollen glands, others Endocrine: denies: excessive hunger, excessive sweating, excessive thirst, excessive urination, flushing, intolerance to cold, intolerance to heat, unexplained weight gain, unexplained weight loss, others Psychiatric: denies: anxiety, bipolar disorder, depression, hopeless, panic disorder, schizophrenia, sleepless, suicidal, others All Other Systems: Reviewed and Negative Physical Exam General Appearance: No Apparent Distress HEENT: PERRL/EOMI, Other (Dry mucous membranes) Neck: Full Range of Motion, Normal Inspection Respiratory: Decreased Breath Sounds, No Accessory Muscle Use, No Respiratory Distress Cardiovascular: No Edema, No JVD, Regular Rate/Rhythm Breast Exam: Deferred Gastrointestinal: LLQ, RLQ, Soft, Suprapubic, Tenderness Genitalia: Deferred Pelvic: Deferred Rectal: Deferred Extremities: Normal inspection, Normal range of motion, Non-tender, No pedal edema Neurologic: Alert (Oriented x4), Normal Affect, Normal Mood, Other (Moves all extremities.) Cerebellar Function: NOT DONE Reflexes: NOT DONE Skin: Dry, Pallor, Warm Lymphatic: NOT DONE EKG EKG : Comments Sinus rhythm, rate 71, normal intervals, normal axis, normal QRS, no ST/T pam nges. Was a procedure done? Was a procedure done?: No Differential Diagnosis (SZ) Seizure: CVA/TIA, Hypocalcemia, Hypoglycemia, Hyponatremia, Syncope General Weakness: Anemia, CVA, Dehydration, Dysrhythmia, Electrolyte imbalance, Encephalopathy, Hypoglycemia, Hypotension, TIA, Other (failure to thrive, UTI, musculoskeltal pain, metabolic encephalopathy) Headache: Closed Head Injury X-Ray, Labs, Meds, VS Vital Signs Date Time Temp Pulse Resp B/P (MAP) Pulse Ox O2 Delivery O2 Flow Rate FiO2 09/09/24 11:14 67 19 93 Room Air* 0 21 09/09/24 10:33 71 09/09/24 10:20 98.1 73 18 87/55 (66) 95 98.1 Lab Test 09/09/24 11:53 09/09/24 10:59 Range/Units Troponin I High Sensitivity 6 5 </=34 ng/L White Blood Count 14.7 H 4.4-10.8 10^3/uL Red Blood Count 4.85 4.0-5.20 10^6/uL Hemoglobin 14.8 12.2-16.2 g/dL Hematocrit 44.6 36.0-46.0 % Mean Corpuscular Volume 91.9 80.0-100.0 fL Mean Corpuscular Hemoglobin 30.5 28.0-32.0 pg Mean Corpuscular Hemoglobin Concent 33.2 32.0-36.0 g/dL Red Cell Distribution Width 15.0 H 11.8-14.3 % Platelet Count 179 140-450 10^3/uL Mean Platelet Volume 9.4 6.9-10.8 fL Neutrophils (%) (Auto) 80.6 H 37.0-80.0 % Lymphocytes (%) (Auto) 13.2 10.0-50.0 % Monocytes (%) (Auto) 5.5 0.0-12.0 % Eosinophils (%) (Auto) 0.4 0.0-7.0 % Basophils (%) (Auto) 0.3 0.0-2.0 % Neutrophils # (Auto) 11.9 H 1.6-8.6 10 ^3/uL Lymphocytes # (Auto) 1.9 0.4-5.4 10 ^3/uL Monocytes # (Auto) 0.8 0-1.3 10 ^3/uL Eosinophils # (Auto) 0.1 0-0.8 10 ^3/uL Basophils # (Auto) 0 0-0.2 10 ^3/uL Nucleated Red Blood Cells 0.3 % Platelet Estimate Adequate Clumped Platelets None Sodium Level 142 136-145 mmol/L Potassium Level 4.2 3.5-5.1 mmol/L Chloride Level 110 H 98-107 mmol/L Carbon Dioxide Level 25 20-31 mmol/L Anion Gap 7 5-15 Blood Urea Nitrogen 30 H 9-23 mg/dL Creatinine 1.08 H 0.550-1.02 mg/dL Glomerular Filtration Rate Calc 54 >90 mL/min BUN/Creatinine Ratio 27.8 H 10.0-20.0 Serum Glucose 86 74-106 mg/dL Lactic Acid Level 1.7 0.4-2.0 mmol/L Calcium Level 8.5 L 8.7-10.4 mg/dL Total Bilirubin 0.7 0.2-1.0 mg/dL Aspartate Amino Transferase (AST) 16 13-40 U/L Alanine Aminotransferase (ALT) < 9 7-40 U/L Alkaline Phosphatase 60 46-116 U/L B-Type Natriuretic Peptide 96.16 0-100 pg/mL Total Protein 6.0 5.7-8.2 g/dL Albumin 3.7 3.2-4.8 g/dL Lipase 34 12-53 U/L Current Medications Medications (Trade) Dose Ordered Sig/Acosta Route Start Time Stop Time Status Last Admin Sodium Chloride 1,000 ml @ 1,000 mls/hr Q1H ONCE IV 09/09/24 10:30 09/09/24 11:29 DC 09/09/24 11:[address] [address] Ph: [phone] DIAGNOSTIC IMAGING Diagnostic Imaging Report : [id number] Signed PATIENT: LEWIS FANGACCT: [id number] UNIT: [id number] : 1950 LOC: ER ROOM / BED: / AGE / SEX: 73 / F ADM STATUS: REG ER SERVICE 1026 ORDERING PHYSICIAN: KOFFI MONDRAGON MD PROCEDURE(s): HWOCT - HEAD WITHOUT CONTRAST REASON: gen weak, near syncope ORDER NUMBER(s): [id number], ACCESSION NUMBER(s): [id number] EXAM: CT HEAD WITHOUT CONTRAST HISTORY: gen weak, near syncope COMPARISON: CT HEAD WITHOUT CONTRAST on DOS: 11/04/22 TECHNIQUE: Noncontrast axial CT images of the head were performed. Sagittal and coronal reformatted images were obtained. This CT exam was performed using 1 or more of the following dose reduction techniques: Automated exposure control, adjustment of the mA and/or kv according to patient size, or the use of iterative reconstruction techniques. Radiation Dose: CTDI volume is 53.84 mGy. Dose-length product is 951.64 mGy*cm FINDINGS: There is mild global brain atrophy. No intracranial hemorrhage, mass, midline shift, hydrocephalus, or evidence of acute large vessel infarct. There is a tiny cavum septum pellucidum. The sella is elongated in the cephalocaudal dimension. There are postoperative changes of bilateral cataract extraction surgery. There is mild bilateral maxillary and ethmoid mucosal thickening. The bilateral mastoid air cells and middle ear spaces are clear. No cranial fracture or scalp edema. IMPRESSION: 1. Mild global brain atrophy without evidence of acute intracranial process. 2. Enlargement of the sella in the cephalocaudal dimension. Consider follow-up noncontrast MRI of the brain on a nonemergent basis for better characterization. 3. Mild paranasal sinus disease. ATED BY: LUZ WALTON MD DICTATED DATE/TIME: 09/09/24 1113 SIGNED BY: LUZ WALTON MD SIGNED DATE/TIME: 09/09/24 1115 CC: [place] [id number] Ph: [phone] DIAGNOSTIC IMAGING Diagnostic Imaging Report : [id number] Signed PATIENT: EFRAIN FANGT: [id number] UNIT: [id number] : 1950 LOC: ER ROOM / BED: / AGE / SEX: 73 / F ADM STATUS: REG ER SERVICE 1029 ORDERING PHYSICIAN: KOFFI MONDRAGON MD PROCEDURE(s): CXRP - CHEST PORTABLE REASON: gen weak ORDER NUMBER(s): [id number], ACCESSION NUMBER(s): [id number] EXAM: XY CHEST PORTABLE Indication: gen weak Technique: Single frontal view of the chest was obtained Comparison: XY CHEST PORTABLE on DOS: 11/04/22 FINDINGS: Lines and Tubes: None Lungs: Left basilar opacity Pleura: Small left pleural effusion. No pneumothorax. Cardiomediastinal contours: Cardiomegaly. Bones: No acute osseous abnormality. IMPRESSION: Cardiomegaly with small left pleural effusion and left basilar opacity. ATED BY: ROJAS JONES MD DICTATED DATE/TIME: 09/09/24 110 SIGNED BY: ROJAS JONES MD SIGNED DATE/TIME: 09/09/24 110 CC: [place] [id number] Ph: [phone] DIAGNOSTIC IMAGING Diagnostic Imaging Report : [id number] Signed PATIENT: EFRAIN FANGT: [id number] UNIT: [id number] : 1950 LOC: ER ROOM / BED: / AGE / SEX: 73 / F ADM STATUS: REG ER SERVICE 1029 ORDERING PHYSICIAN: KOFFI MONDRAGON MD PROCEDURE(s): ABPL - CT AB PEL WO CON-NO ORAL OR IV REASON: low abd pain ORDER NUMBER(s): [id number], ACCESSION NUMBER(s): [id number] CT ABDOMEN AND PELVIS WITHOUT CONTRAST CLINICAL HISTORY: low abd pain TECHNIQUE: Multiple contiguous axial images of the abdomen and pelvis without intravenous contrast. The images were reformatted degenerate coronal and sagittal reconstructions. All CT scans at this medical facility are performed using dose modulation techniques as appropriate to a performed exam including the following:Automated exposure control was utilized; adjustment of the MA and/or KV according to patient size; and use of iterative reconstruction technique. Radiation Dose Information: CT Dose: CTDI volume is 18 mGy. Dose-length product is 2024 mGy*cm Comparison: None FINDINGS: Evaluation of the abdomen and pelvis is limited without intravenous contrast. The gallbladder is surgically absent. The liver, pancreas, kidneys, adrenal glands, and spleen appear within normal limits. There is no gross evidence of abdominal lymphadenopathy. There is no free fluid or free air. The stomach grossly appears unremarkable. The small and large bowel loops demonstrate normal caliber and distribution. A normal appearing appendix is seen in the right lower quadrant abdomen. There are scattered diverticula in the distal colon. There is long segment collapsed and wall thickening of the descending colon with surrounding fat stranding compatible with colitis. There is no pericolonic fluid collection or free air. The abdominal aorta and IVC appear within normal limits. The bladder appears unremarkable for the degree of distention. There is a fibroid uterus. There is no gross evidence of a pelvic mass. There is no free fluid collection. There is scarring versus atelectasis in the lung bases. There is no acute osseous abnormality. IMPRESSION: 1. There is long segment collapsed with wall thickening of the descending colon with surrounding fat stranding compatible with colitis. There is no pericolonic fluid collection or free air. 2. Fibroid uterus. HS:Y ATED BY: DIEGO FERRO MD DICTATED DATE/TIME: 09/09/24 113 SIGNED BY: DIEGO FERRO MD SIGNED DATE/TIME: 09/09/24 113 CC: X-Ray, Labs, Meds, VS Comment 73-year-old female with a history of hypertension, chronic back pain and Parkinson's brought in by EMS after collapsing while under the care of her caregiver, who notes patient has had decreased p.o. intake and lower abdominal discomfort for the past 2-3 days Vitals remarkable for BP 87/55 Exam remarkable for lower abdominal tenderness to palpation Rhythm strip independently interpreted by me: Sinus rhythm, rate 71, no ectopy. CT head IMPRESSION: 1. Mild global brain atrophy without evidence of acute intracranial process. 2. Enlargement of the sella in the cephalocaudal dimension. Consider follow-up noncontrast MRI of the brain on a nonemergent basis for better characterization. 3. Mild paranasal sinus disease. Chest x-ray IMPRESSION: Cardiomegaly with small left pleural effusion and left basilar opacity. CT abdomen and pelvis: IMPRESSION: 1. There is long segment collapsed with wall thickening of the descending colon with surrounding fat stranding compatible with colitis. There is no pericolonic fluid collection or free air. 2. Fibroid uterus. CBC remarkable for WBC 14.7, CMP remarkable for BUN 30, creatinine 1.08, BNP and troponin unremarkable, lactate normal, lipase normal, UA pending Patient treated with the following in the ED: 1 L 0.9 normal saline IV bolus, cefepime 1 g IV, Flagyl 500 mg IV On re-evaluation, patient appears comfortable with blood pressure is 147/66 Plan is to admit the patient for IV antibiotics and hydration. Time of 1ST Reevaluation: 11:30 Reevaluation 1ST: Unchanged Patient Education/Counseling: Diagnosis, Treatment Family Education/Counseling: Diagnosis, Treatment Departure 1 Departure Time of Disposition: 12:43 Impression: Primary Impression: Pneumonia Qualified Codes: J18.9 - Pneumonia, unspecified organism Additional Impressions: Colitis Acute kidney injury Generalized weakness Disposition: 09 ADMITTED INPATIENT Admit to: [facility] Condition: Guarded Critical Care Note Critical Care Time?: No Stability Stability form required: No Heart Score Heart Score: Heart Score Response (Comments) Value History N/A 0 EKG N/A 0 Age N/A 0 Risk Factors N/A 0 Troponin N/A 0 Total 0 I personally scribed for KOFFI MONDRAGON MD ([email or web address]) on 09/09/24 at 11:04. Electronically submitted by Vazquez Bui ([facility]). I personally scribed for KOFFI MONDRAGON MD ([email or web address]) on 09/09/24 at 12:27. Electronically submitted by Vazquez Bui ([facility]). KOFFI MONDRAGON MD September 09, 2024 11:04
[2024-09-09] MEDS: SODIUM CHLORIDE 0.9% 1,000 ML IV ONE (11:08)
[2024-09-09 11:14] VITALS: PULSE 67; RESP 19; O2SAT 93
--- NOTE | 2024-09-09 11:16 | DVH ---
EXAM: CT HEAD WITHOUT CONTRAST HISTORY: gen weak, near syncope COMPARISON: CT HEAD WITHOUT CONTRAST on DOS: 11/04/22 TECHNIQUE: Noncontrast axial CT images of the head were performed. Sagittal and coronal reformatted i mages were obtained. This CT exam was performed using 1 or more of the following dose reduction techn iques: Automated exposure control, adjustment of the mA and/or kv according to patient size, or the u se of iterative reconstruction techniques. Radiation Dose: CTDI volume is 53.84 mGy. Dose-length product is 951.64 mGy*cm FINDINGS: There is mild global brain atrophy. No intracranial hemorrhage, mass, midline shift, hydrocephalus, o r evidence of acute large vessel infarct. There is a tiny cavum septum pellucidum. The sella is elong ated in the cephalocaudal dimension. There are postoperative changes of bilateral cataract extraction surgery. There is mild bilateral maxillary and ethmoid mucosal thickening. The bilateral mastoid ai r cells and middle ear spaces are clear. No cranial fracture or scalp edema. IMPRESSION: 1. Mild global brain atrophy without evidence of acute intracranial process. 2. Enlargement of the sella in the cephalocaudal dimension. Consider follow-up noncontrast MRI of the brain on a nonemergent basis for better characterization. 3. Mild paranasal sinus disease.
[2024-09-09 11:30] LABS: Hemoglobin 14.8 g/dL (12.2-16.2); Lymphocytes # (auto) 1.9 10 ^3/uL (0.4-5.4); Mean Corpuscular Hemoglobin 30.5 pg (28.0-32.0); Mean Corpuscular Hgb Conc. 33.2 g/dL (32.0-36.0); Mean Corpuscular Volume 91.9 fL (80.0-100.0)
--- NOTE | 2024-09-09 11:33 | DVH ---
CT ABDOMEN AND PELVIS WITHOUT CONTRAST CLINICAL HISTORY: low abd pain TECHNIQUE: Multiple contiguous axial images of the abdomen and pelvis without intravenous contrast. T he images were reformatted degenerate coronal and sagittal reconstructions. All CT scans at this medical facility are performed using dose modulation techniques as appropriate t o a performed exam including the following:Automated exposure control was utilized; adjustment of the MA and/or KV according to patient size; and use of iterative reconstruction technique. Radiation Dose Information: CT Dose: CTDI volume is 18 mGy. Dose-length product is 2024 mGy*cm Comparison: None FINDINGS: Evaluation of the abdomen and pelvis is limited without intravenous contrast. The gallbladder is surgically absent. The liver, pancreas, kidneys, adrenal glands, and spleen jd ear within normal limits. There is no gross evidence of abdominal lymphadenopathy. There is no free fluid or free air. The stomach grossly appears unremarkable. The small and large bowel loops demonstrate normal caliber and distribution. A normal appearing appendix is seen in the right lower quadrant abdomen. There are scattered diverticula in the distal colon. There is long segment collapsed and wall thickening of th e descending colon with surrounding fat stranding compatible with colitis. There is no pericolonic fl uid collection or free air. The abdominal aorta and IVC appear within normal limits. The bladder appears unremarkable for the degree of distention. There is a fibroid uterus. There is no gross evidence of a pelvic mass. There is no free fluid collection. There is scarring versus atelectasis in the lung bases. There is no acute osseous abnormality. IMPRESSION: 1. There is long segment collapsed with wall thickening of the descending colon with surrounding fat stranding compatible with colitis. There is no pericolonic fluid collection or free air. 2. Fibroid uterus. HS:Y
[2024-09-09 11:34] LABS: Albumin 3.7 g/dL (3.2-4.8); Alkaline Phosphatase 60 U/L (46-116); Anion Gap 7 (5-15); Aspartate Aminotransferase 16 U/L (13-40); BUN/Creatinine Ratio 27.8 (10.0-20.0); Carbon Dioxide 25 mmol/L (20-31); Glucose 86 mg/dL (74-106); Lipase 34 U/L (12-53); Potassium 4.2 mmol/L (3.5-5.1); Sodium 142 mmol/L (136-145)
[2024-09-09 11:35] LABS: Alanine Aminotransferase < 9 U/L (7-40); Bilirubin, Total 0.7 mg/dL (0.2-1.0); Blood Urea Nitrogen 30 mg/dL (9-23); Calcium 8.5 mg/dL (8.7-10.4); Chloride 110 mmol/L (98-107)
[2024-09-09 11:39] LABS: Basophils # (auto) 0 10 ^3/uL (0-0.2); Basophils % (auto) 0.3 % (0.0-2.0); Eosinophils # (auto) 0.1 10 ^3/uL (0-0.8); Eosinophils % (auto) 0.4 % (0.0-7.0); Hematocrit 44.6 % (36.0-46.0); Lymphocytes % (auto) 13.2 % (10.0-50.0); Monocytes # (auto) 0.8 10 ^3/uL (0-1.3); Monocytes % (auto) 5.5 % (0.0-12.0); Neutrophils # (auto) 11.9 10 ^3/uL (1.6-8.6); Neutrophils % (auto) 80.6 % (37.0-80.0); Nucleated Red Blood Cells % 0.3 %; Red Blood Cells 4.85 10^6/uL (4.0-5.20); White Blood Cell 14.7 10^3/uL (4.4-10.8)
[2024-09-09 11:55] LABS: Platelet Count (auto) 179 10^3/uL (140-450); Platelet Estimate Adequate
[2024-09-09] MEDS ORDERED: BUPR5DIS TD (14:42)
--- NOTE | 2024-09-09 14:42 | DVHHP2 ---
History of Present Illness Reason for Visit: Generalized weakness History of Present Illness Abi Ca is a 73-year-old female with past medical history of hypertension, hyperlipidemia, Parkinson's disease, anxiety, chronic back pain, L4-L5 laminectomy, and osteoarthritis of the hip who presents to the ED with gen eralized weakness and loss of appetite for about 3 days. Patient's Hong is at the bedside. He reports that patient for the last 2 years when originally diagnosed with a UTI and hypokalemia is when the weakness started. Patient's reported that today they were getting ready to go to see the automotive paint technician in [place]. While in the garage the patient's legs gave out and the has been caught the patient with no reported head strike or loss of consciousness. He states that he it happened twice including when he was trying to get her in the car. He reports that he called EMS for assistance. Patient's also reported that yesterday they were at [place] and we are reviewing the MRI results and the specialist stated that she would need injections. He also reports that she had 3 herniated discs and had also received injections for that. Patient states that today's pain specialist visit was supposed to review the MRI of the hip and lower back. Patient's states that the patient has been complaining of right hip pain and uses a front wheel walker to ambulate but has been progressively getting weak. He also reports that she is compliant with her medications. He also endorses that the patient was here at [facility] in March of 2024 and at [facility] in May of 2024. Patient's also states that she has not had the appetite to eat for several days. He also reports that patient sees a neurologist here at [facility]. Patient denies any chest pain, shortness of breath, fever, chills, lightheadedness, dizziness, abdominal pain, nausea, vomiting, diarrhea, recent sick contacts, recent travels, or recent ingestion of spoiled food. Patient's also states that patient has been taking medications that were prescribed/received in [place]: doloneurobion, betahistine, and omega 5. Cardiovascular: HTN, hyperipidemia Psych: Anxiety Past Medical History Parkinson's Chronic back pain Osteoarthritis of the hip Past Surgical History: Other (L4-L5 laminectomy) Family History: None Smoke: No ALCOHOL: none Drugs: None Lives: with Family Domestic Violence: Neg Review of Systems Constitutional: Yes: Weakness Allergies: Coded Allergies: Aspirin (Verified Allergy, Unknown, 11/04/22) Medications Current Medications Medications Dose Ordered Sig/Acosta Route Start Time Stop Time Status Last Admin Dose Admin Fluticasone Propionate 50 mcg Q12HR EACHNOSTRI 09/09/24 22:00 UNV Metronidazole 100 ml @ 100 mls/hr Q8HR IV 09/09/24 22:00 UNV Cefepime HCl 50 ml @ 12.5 mls/hr Q8HR IV 09/09/24 22:00 UNV Ondansetron HCl 4 mg Q4HP PRN IV 09/09/24 14:45 UNV Enoxaparin Sodium 40 mg DAILY SC 09/10/24 10:00 UNV Acetaminophen 650 mg Q6HP PRN PO 09/09/24 14:45 UNV Alprazolam 0.125 mg BID PO 09/09/24 22:00 UNV Amlodipine Besylate 5 mg DAILY PO 09/10/24 10:00 UNV Atorvastatin Calcium 20 mg DAILY PO 09/10/24 10:00 UNV Carbidopa/Levodopa 1 tab DAILY PO 09/10/24 10:00 UNV Metoprolol Tartrate 25 mg DAILY PO 09/10/24 10:00 UNV Patient Own Medication 1 tab DAILY PO 09/10/24 10:00 UNV Patient Own Medication 1 tab DAILY PO 09/10/24 10:00 UNV Patient Own Medication 1 tab TID PO 09/09/24 22:00 UNV Patient Own Medication 1 tab DAILY PO 09/10/24 10:00 UNV Patient Own Medication 1 tab DAILY PO 09/10/24 10:00 UNV Patient Own Medication 1 tab DAILY PO 09/10/24 10:00 UNV Patient Own Medication 1 tab DAILY PO 09/10/24 10:00 UNV Pramipexole Dihydrochloride 0.75 mg HS PO 09/09/24 22:00 UNV Exam Vital Signs Vital Signs Date Time Temp Pulse Resp B/P (MAP) Pulse Ox O2 Delivery O2 Flow Rate FiO2 09/09/24 12:17 97.8 63 16 147/60 (89) 94 97.8 09/09/24 11:14 Room Air* 0 21 General Appearance: Alert, Oriented X3, Cooperative, No acute distress HEENT: Atraumatic, PERRLA, EOMI, Mucous membr. moist/pink Respiratory: Clear to auscultation, Normal air movement Cardiovascular: Regular rate, Normal S1, Normal S2, No murmurs Abdominal: Normal bowel sounds, Soft, No tenderness, No hepatospenomegaly, No masses Extremities: No clubbing, No cyanosis, Normal pulses Neuro: Normal speech, Normal tone, Sensation intact Psych/Mental Status: Mental status NL, Mood NL Labs/Xrays Labs Test 09/09/24 11:53 09/09/24 10:59 Range/Units Troponin I High Sensitivity 6 </=34 ng/L White Blood Count 14.7 H 4.4-10.8 10^3/uL Red Blood Count 4.85 4.0-5.20 10^6/uL Hemoglobin 14.8 12.2-16.2 g/dL Hematocrit 44.6 36.0-46.0 % Mean Corpuscular Volume 91.9 80.0-100.0 fL Mean Corpuscular Hemoglobin 30.5 28.0-32.0 pg Mean Corpuscular Hemoglobin Concent 33.2 32.0-36.0 g/dL Red Cell Distribution Width 15.0 H 11.8-14.3 % Platelet Count 179 140-450 10^3/uL Mean Platelet Volume 9.4 6.9-10.8 fL Neutrophils (%) (Auto) 80.6 H 37.0-80.0 % Lymphocytes (%) (Auto) 13.2 10.0-50.0 % Monocytes (%) (Auto) 5.5 0.0-12.0 % Eosinophils (%) (Auto) 0.4 0.0-7.0 % Basophils (%) (Auto) 0.3 0.0-2.0 % Neutrophils # (Auto) 11.9 H 1.6-8.6 10 ^3/uL Lymphocytes # (Auto) 1.9 0.4-5.4 10 ^3/uL Monocytes # (Auto) 0.8 0-1.3 10 ^3/uL Eosinophils # (Auto) 0.1 0-0.8 10 ^3/uL Basophils # (Auto) 0 0-0.2 10 ^3/uL Nucleated Red Blood Cells 0.3 % Platelet Estimate Adequate Clumped Platelets None Sodium Level 142 136-145 mmol/L Potassium Level 4.2 3.5-5.1 mmol/L Chloride Level 110 H 98-107 mmol/L Carbon Dioxide Level 25 20-31 mmol/L Anion Gap 7 5-15 Blood Urea Nitrogen 30 H 9-23 mg/dL Creatinine 1.08 H 0.550-1.02 mg/dL Glomerular Filtration Rate Calc 54 >90 mL/min BUN/Creatinine Ratio 27.8 H 10.0-20.0 Serum Glucose 86 74-106 mg/dL Lactic Acid Level 1.7 0.4-2.0 mmol/L Calcium Level 8.5 L 8.7-10.4 mg/dL Total Bilirubin 0.7 0.2-1.0 mg/dL Aspartate Amino Transferase (AST) 16 13-40 U/L Alanine Aminotransferase (ALT) < 9 7-40 U/L Alkaline Phosphatase 60 46-116 U/L B-Type Natriuretic Peptide 96.16 0-100 pg/mL Total Protein 6.0 5.7-8.2 g/dL Albumin 3.7 3.2-4.8 g/dL Lipase 34 12-53 U/L EXAM: CT HEAD WITHOUT CONTRAST HISTORY: gen weak, near syncope COMPARISON: CT HEAD WITHOUT CONTRAST on DOS: 11/04/22 TECHNIQUE: Noncontrast axial CT images of the head were performed. Sagittal and coronal reformatted images were obtained. This CT exam was performed using 1 or more of the following dose reduction techniques: Automated exposure control, ad justment of the mA and/or kv according to patient size, or the use of iterative reconstruction techniques. Radiation Dose: CTDI volume is 53.84 mGy. Dose-length product is 951.64 mGy*cm FINDINGS: There is mild global brain atrophy. No intracranial hemorrhage, mass, midline shift, hydrocephalus, or evidence of acute large vessel infarct. There is a tiny cavum septum pellucidum. The sella is elongated in the cephalocaudal dimension. There are postoperative changes of bilateral cataract extraction surgery. There is mild bilateral maxillary and ethmoid mucosal thickening. The bilateral mastoid air cells and middle ear spaces are clear. No cranial fracture or scalp edema. IMPRESSION: 1. Mild global brain atrophy without evidence of acute intracranial process. 2. Enlargement of the sella in the cephalocaudal dimension. Consider follow-up noncontrast MRI of the brain on a nonemergent basis for better characterization. 3. Mild paranasal sinus disease. EXAM: XY CHEST PORTABLE Indication: gen weak Technique: Single frontal view of the chest was obtained Comparison: XY CHEST PORTABLE on DOS: 11/04/22 FINDINGS: Lines and Tubes: None Lungs: Left basilar opacity Pleura: Small left pleural effusion. No pneumothorax. Cardiomediastinal contours: Cardiomegaly. Bones: No acute osseous abnormality. IMPRESSION: Cardiomegaly with small left pleural effusion and left basilar opacity. CT ABDOMEN AND PELVIS WITHOUT CONTRAST CLINICAL HISTORY: low abd pain TECHNIQUE: Multiple contiguous axial images of the abdomen and pelvis without intravenous contrast. The images were reformatted degenerate coronal and sagittal reconstructions. All CT scans at this medical facility are performed using dose modulation techniques as appropriate to a performed exam including the following:Automated exposure control was utilized; adjustment of the MA and/or KV according to patient size; and use of iterative reconstruction technique. Radiation Dose Information: CT Dose: CTDI volume is 18 mGy. Dose-length product is 2024 mGy*cm Comparison: None FINDINGS: Evaluation of the abdomen and pelvis is limited without intravenous contrast. The gallbladder is surgically absent. The liver, pancreas, kidneys, adrenal glands, and spleen appear within normal limits. There is no gross evidence of abdominal lymphadenopathy. There is no free fluid or free air. The stomach grossly appears unremarkable. The small and large bowel loops demonstrate normal caliber and distribution. A normal appearing appendix is seen in the right lower quadrant abdomen. There are scattered diverticula in the distal colon. There is long segment collapsed and wall thickening of the descending colon with surrounding fat stranding compatible with colitis. There is no pericolonic fluid collection or free air. The abdominal aorta and IVC appear within normal limits. The bladder appears unremarkable for the degree of distention. There is a fibroid uterus. There is no gross evidence of a pelvic mass. There is no free fluid collection. There is scarring versus atelectasis in the lung bases. There is no acute osseous abnormality. IMPRESSION: 1. There is long segment collapsed with wall thickening of the descending colon with surrounding fat stranding compatible with colitis. There is no pericolonic fluid collection or free air. 2. Fibroid uterus. Assessment/Plan Assessment/Plan Assessment Generalized weakness Mild paranasal sinus disease Cardiomegaly with small left pleural effusion and left basilar opacity Leukocytosis likely due to colitis Enlargement of the sella in the cephalocaudal dimension Uterine fibroid History of hypertension History of hyperlipidemia History of Parkinson's History of anxiety History of chronic back pain History of OA of the hip History of L4-L5 laminectomy Plan Admit to [facility] surge IV antibiotics-Flagyl + cefepime Antiemetics Pain management NS 1 L given ED RBC morphology CT abdomen and pelvis noted Blood cultures Lactic Lipase Troponin negative x2 CT head noted EKG UA Chest x-ray BNP Diet Home medications reconciled DVT prophylaxis-Lovenox PUD prophylaxis-PPIs Discussed plan of care with patient, patient's spouse, and nurse Nutrition consult Neuro consult Rounding hospitalist consider follow up noncontrast MRI of the brain for enlargement of the sella in the cephalocaudal dimension Plan discussed with: Patient, Spouse My Orders Orders - LISSETH HERNANDEZ INTAKE SPECIALIST Procedure Category Date Status Time Fluticasone Nasal PHA 09/09/24 Logged [place] (Flonase [place]) 22:00 * Neurology Consult CONS 09/09/24 Transmitted 14:35 Metronidazole PHA 09/09/24 Logged 500mg/100ml (Flagyl 22:00 Cefepime 1gm/ 50ml PHA 09/09/24 Logged (Maxipime 1gm/50ml) 22:00 Admit ADMIT 09/09/24 Transmitted 14:35 Allergies KECIA 09/09/24 In Process 14:35 Code Status CODE 09/09/24 Transmitted 14:35 Ondansetron Hcl PHA 09/09/24 Logged (Zofran) 14:45 Enoxaparin Sodium PHA 09/10/24 Logged (Lovenox) 10:00 Complete Blood Count LAB 09/10/24 Verified 04:00 Comprehensive LAB 09/10/24 Verified Metabolic Panel 04:00 Cardiac DIET 09/09/24 Transmitted Diet-2gna,Lofat,Lochol Dinner Acetaminophen Tablet PHA 09/09/24 Logged (Tylenol Tablet) 14:45 Alprazolam Tablet PHA 09/09/24 Logged (Xanax Tablet) 22:00 Amlodipine Tablet PHA 09/10/24 Logged (Norvasc Tablet) 10:00 Atorvastatin (Lipitor) PHA 09/10/24 Logged 10:00 Carbidopa W Levodopa PHA 09/10/24 Logged Cr 25/100 (Sinemet 10:00 Metoprolol Tartrate PHA 09/10/24 Logged Tablet (Lopressor Ta 10:00 (Nf) Aripiprazole PHA 09/10/24 Logged 10:00 (Nf) Donepezil PHA 09/10/24 Logged Hydrochloride 10:00 (Nf) Entacapone PHA 09/09/24 Logged 22:00 (Nf) Escitalopram PHA 09/10/24 Logged Oxalate 10:00 (Nf) Famotidine PHA 09/10/24 Logged 10:00 (Nf) Rasagiline PHA 09/10/24 Logged Mesylate 10:00 (Nf) Sertraline Hcl PHA 09/10/24 Logged (Sertraline Hydrochl 10:00 Pramipexole Tablet PHA 09/09/24 Logged (Mirapex Tablet) 22:00 Date of Service: September 09, 2024 Billing Provider: LISSETH HERNANDEZ Common Visit Codes: [id number] INP/OBS CARE (HIGH) LISSETH HERNANDEZ September 09, 2024 14:42
[2024-09-09] MEDS ORDERED: ONDANSETRON HCL 4 MG/2 ML VIAL IV PRN (14:45)
[2024-09-09] MEDS: metroNIDAZOLE 500MG/100ML 100 ML IV ONE (14:50)
[2024-09-09] MEDS: CEFEPIME 1GM/ 50ML 50 ML IV ONE (15:39)
[2024-09-09] MEDS: ACETAMINOPHEN 325 MG TAB PO PRN (19:38)
[2024-09-09 20:00] VITALS: PULSE 72; RESP 21; O2SAT 95
[2024-09-09] MEDS ORDERED: CEFEPIME 1GM/ 50ML 50 ML IV SCH (22:00)
[2024-09-09] MEDS: metroNIDAZOLE 500MG/100ML 100 ML IV SCH (22:00)
[2024-09-09] MEDS: DONEPEZIL HYDROCHLORIDE 5 MG TAB PO SCH (22:00)
[2024-09-09] MEDS: FLUTICASONE PROP NASAL SPR 0.05 % (50MCG) 16GM EACHNOSTRI SCH (22:00)
--- NOTE | 2024-09-09 22:09 | DVHINCON2 ---
Date of service: September 09, [address] Deshpande Reason for Consultation Progressive weakness History of Present Illness Ms. Rodríguez is a right-handed female with a history of hypertension, diabetes, depression, chronic low back pain she [facility] with a chief company of general weakness. At that time, she is awake, oriented to person, place, he only remember having falls before she came to the hospital. The history is obtained from her . I see her in my office for dementia and possible Parkinson's disease On 09/09/2024, when her is taking her to her scheduled the pain Clinic for her low back pain, she was had two falls and her happened was not able to get her up, he dial 911 and he was brought to the hospital Her relate the patient was has had progress general weakness for about one year, she was has low appetite and the last eight steve in lasts two month She was progressive memory difficulty since 2020, she was reasonably low vitamin B12, but no family history of dementia. I did not prescribe a Alzheimer medication for her She was has a history of gait disturbance since 2014, she has been on Parkinson's medication before I saw her, and she was still takes Sinemet 25/100 t.i.d., and talked about 200 mg t.i.d., rasagiline 1 mg t.i.d.. Clinically the patient was does not have convincing evidence of Parkinson's disease, when she was seen in the [facility]rology on 09/01/2024, her was told that she did not have typical Parkinson's features, unfortunately, her follow-up visit with a possibly in about one year Reports for my office VitB12, 07/2022: 318, 12/2022: 251 Homocysteine 02/2023: 17.9 Methylmalonic acid, : 141 TSH, 12/2022: 4.93 EEG, 01/02/23: Normal 1 hour EEG MRI head, 12/2022: Absence swallow tail sign within the substantia nigra, Finding are commonly attributable to Parkinsons disease WBC/HB/PLT/MCV, 09/09/2024: 14.7/14.8/179/91.9 BUN/CR, 09/09/2024: 30/1.08 Liver function tests, 09/09/2024: Unremarkable TG/HDL/LDL/HDL, 06/06/2024: 209/137/59/34 Chest x-ray, 09/09/2024: Cardiomegaly with small left pleural effusion and left basilar opacity CT head, 09/09/2024: 1. Mild global brain atrophy without evidence of acute intracranial process. 2. Enlargement of the sella in the cephalocaudal dimension. Consider follow-up noncontrast MRI of the brain on a nonemergent basis for better characterization. 3. Mild paranasal sinus disease CT abdomen/pelvis, 09/09/2024: 1. There is long segment collapsed with wall thickening of the descending colon with surrounding fat stranding compatible with colitis. There is no pericolonic fluid collection or free air. 2. Fibroid uterus. Past Medical History Hypertension, Parkinson's disease, chronic low back pain Past Surgical History Spine surgery Family History: Cardiovascular disease G8 MOTHER, Onset:Unknown Family History Reviewed,noncontributory to illness Social History Smoker: Non-Smoker Alcohol: Denies ETOH Use Drugs: Denies Drug Use Lives In: Home Allergies: Coded Allergies: Aspirin (Verified Allergy, Unknown, 11/04/22) Home Meds Reported Medications Buprenorphine (Buprenorphine) 5 Mcg/Hr Dis, TD 09/09/24 Sertraline HCl (Sertraline Hydrochloride) 200 Mg Cap, 1 TAB PO DAILY 06/06/24 Atorvastatin Calcium (ATORVASTATIN CALCIUM) 20 Mg Tab, 1 TAB PO DAILY 06/06/24 Amlodipine Besylate (Amlodipine Besylate) 5 Mg Tab, 1 TAB PO DAILY 06/06/24 Naproxen Sodium (ALEVE ARTHRITIS) 220 Mg Tab, 220 MG PO, TAB 11/05/22 Meclizine Hcl (Meclizine Hcl) 25 Mg Tab, 25 MG PO TIDPRN PRN for DIZZINESS for 30 Days, MG 11/05/22 Tizanidine Hydrochloride (Tizanidine Hcl) 4 Mg Tab, 1 TAB PO BIDPRN PRN for muscle spasm 11/05/22 Metoprolol Tartrate (Lopressor) 25 Mg Tb, 1 TAB PO DAILY 11/05/22 Naproxen (NAPROSYN TABLET) 500 Mg Tb, 1 TAB PO BID 11/05/22 Entacapone (ENTACAPONE) 200 Mg Tab, 1 TAB PO TID 11/05/22 Rasagiline Mesylate (Rasagiline Mesylate) 1 Mg Tab, 1 TAB PO DAILY 11/05/22 Aripiprazole (Aripiprazole) 2 Mg Tab, 1 TAB PO DAILY 11/05/22 Carbidopa-Levodopa (Carbidopa/Levodopa Er) 25 /100 Tab 11/05/22 Escitalopram Oxalate (ESCITALOPRAM OXALATE) 20 Mg Tab, 1 TAB PO DAILY 11/05/22 Alprazolam (Alprazolam) 0.25 Mg Tab, 0.5 TAB PO BID 11/05/22 Pramipexole Dihydrochloride (Mirapex Er) 0.75 Mg Tab, 1 MG 11/05/22 Donepezil Hydrochloride (DONEPEZIL HCL) 10 Mg Tab, 1 TAB PO DAILY 11/05/22 Famotidine (Famotidine) 40 Mg Tab, 1 TAB PO DAILY 11/05/22 Current Medications Current Medications Medications (Trade) Dose Ordered Sig/Acosta Route PRN Reason Start Time Stop Time Status Last Admin Fluticasone Propionate (Flonase [place]) 50 mcg Q12HR EACHNOSTRI 09/09/24 22:00 Metronidazole 100 ml @ 100 mls/hr Q8HR IV 09/09/24 22:00 Cefepime HCl 50 ml @ 12.5 mls/hr Q8HR IV 09/09/24 22:00 09/09/24 16:57 DC Ondansetron HCl (Zofran) 4 mg Q4HP PRN IV NAUSEA / VOMITING 09/09/24 14:45 Enoxaparin Sodium (Lovenox) 40 mg DAILY SC 09/10/24 10:00 Acetaminophen (Tylenol Tablet) 650 mg Q6HP PRN PO PAIN SCALE 1-3 OR TEMP>100.4 09/09/24 14:45 09/09/24 20:41 Alprazolam (Xanax Tablet) 0.125 mg BID PO 09/09/24 22:00 Amlodipine Besylate (Norvasc Tablet) 5 mg DAILY PO 09/10/24 10:00 Atorvastatin Calcium (Lipitor) 20 mg DAILY PO 09/10/24 10:00 Carbidopa/Levodopa (Sinemet Cr 25/ 100MG) 1 tab DAILY PO 09/10/24 10:00 Metoprolol Tartrate (Lopressor Tablet) 25 mg DAILY PO 09/10/24 10:00 Patient Own Medication 1 tab DAILY PO 09/10/24 10:00 Patient Own Medication 1 tab DAILY PO 09/10/24 10:00 UNV Patient Own Medication 1 tab TID PO 09/09/24 22:00 Patient Own Medication 1 tab DAILY PO 09/10/24 10:00 UNV Patient Own Medication 1 tab DAILY PO 09/10/24 10:00 UNV Patient Own Medication 1 tab DAILY PO 09/10/24 10:00 Patient Own Medication 1 tab DAILY PO 09/10/24 10:00 UNV Pramipexole Dihydrochloride (Mirapex Tablet) 0.75 mg HS PO 09/09/24 22:00 Pantoprazole Sodium (Protonix) 40 mg DAILY IV 09/10/24 10:00 Donepezil HCl (Aricept Tablet) 10 mg HS PO 09/09/24 22:00 Citalopram Hydrobromide (CeleXA TABLET) 40 mg DAILY PO 09/10/24 10:00 Famotidine (Pepcid Tablet) 20 mg DAILY PO 09/10/24 10:00 Sertraline HCl (Zoloft) 200 mg DAILY PO 09/10/24 10:00 Cefepime HCl 50 ml @ 12.5 mls/hr Q12HR IV 09/09/24 22:00 Review of Systems As above, the other systems are negative Vital Signs Vital Signs Date Time Temp Pulse Resp B/P (MAP) Pulse Ox O2 Delivery O2 Flow Rate FiO2 09/09/24 21:54 97.6 65 23 140/83 (102) 93 97.6 09/09/24 11:14 Room Air* 0 21 Physical Exam GENERAL EXAM: General: the patient is well developed and nourished. No acute distress. HEENT: Normocephalic, neck is supple, no carotid bruits. No mass. RESPIRATORY: Normal respiratory effort with symmetrical lung expansion. Lungs clear to auscultation. CARDIOVASCULAR: Regular rate and rhythm with no murmurs. S1, S2. ABDOMEN: Soft, nontender, normal bowel sound NEUROLOGICAL: MENTAL STATUS: Awake and alert. Oriented to person, place SPEECH, LANGUAGE, HIGHER CORTICAL FUNCTION: no aphasia or dysathria. CRANIAL NERVES: #2: Intact visual lerma to confrontation. The optic discs were sharp #3,4,6: Pupils are equal, round and reactive. EOMs full and conjugate. #5: Facial sensation intact in all three divisions bilaterally. Mandibular strength intact. #7: Facial muscles symmetrical and strength intact. #8: Hearing grossly normal to voice. #9,10: Uvula and soft palate rise in the midline. Swallow and voice are normal. #11: Trapezius and sternomastoid strength intact bilaterally. #12: Tongue midline. No fasciculations or atrophy. SENSATION: Sensation to touch and pinprick is normal. MOTOR: Normal tone in the upper and lower extremity. Normal muscle bulk. No fasciculations. Mild tremors on posturing. Muscle strength of the major groups in the upper extremities is 4/5. Muscle strength of the major groups in the lower extremities is 4/5. REFLEXES: Deep tendon reflexes are symmetrical. No pathological reflexes. CEREBELLAR/COORDINATION: Finger to nose is unremarkable bilaterally GAIT/STATION: deferred. Labs/Diagnostic Data Labs Test 09/09/24 11:53 09/09/24 10:59 Range/Units Troponin I High Sensitivity 6 </=34 ng/L White Blood Count 14.7 H 4.4-10.8 10^3/uL Red Blood Count 4.85 4.0-5.20 10^6/uL Hemoglobin 14.8 12.2-16.2 g/dL Hematocrit 44.6 36.0-46.0 % Mean Corpuscular Volume 91.9 80.0-100.0 fL Mean Corpuscular Hemoglobin 30.5 28.0-32.0 pg Mean Corpuscular Hemoglobin Concent 33.2 32.0-36.0 g/dL Red Cell Distribution Width 15.0 H 11.8-14.3 % Platelet Count 179 140-450 10^3/uL Mean Platelet Volume 9.4 6.9-10.8 fL Neutrophils (%) (Auto) 80.6 H 37.0-80.0 % Lymphocytes (%) (Auto) 13.2 10.0-50.0 % Monocytes (%) (Auto) 5.5 0.0-12.0 % Eosinophils (%) (Auto) 0.4 0.0-7.0 % Basophils (%) (Auto) 0.3 0.0-2.0 % Neutrophils # (Auto) 11.9 H 1.6-8.6 10 ^3/uL Lymphocytes # (Auto) 1.9 0.4-5.4 10 ^3/uL Monocytes # (Auto) 0.8 0-1.3 10 ^3/uL Eosinophils # (Auto) 0.1 0-0.8 10 ^3/uL Basophils # (Auto) 0 0-0.2 10 ^3/uL Nucleated Red Blood Cells 0.3 % Platelet Estimate Adequate Clumped Platelets None Sodium Level 142 136-145 mmol/L Potassium Level 4.2 3.5-5.1 mmol/L Chloride Level 110 H 98-107 mmol/L Carbon Dioxide Level 25 20-31 mmol/L Anion Gap 7 5-15 Blood Urea Nitrogen 30 H 9-23 mg/dL Creatinine 1.08 H 0.550-1.02 mg/dL Glomerular Filtration Rate Calc 54 >90 mL/min BUN/Creatinine Ratio 27.8 H 10.0-20.0 Serum Glucose 86 74-106 mg/dL Lactic Acid Level 1.7 0.4-2.0 mmol/L Calcium Level 8.5 L 8.7-10.4 mg/dL Total Bilirubin 0.7 0.2-1.0 mg/dL Aspartate Amino Transferase (AST) 16 13-40 U/L Alanine Aminotransferase (ALT) < 9 7-40 U/L Alkaline Phosphatase 60 46-116 U/L B-Type Natriuretic Peptide 96.16 0-100 pg/mL Total Protein 6.0 5.7-8.2 g/dL Albumin 3.7 3.2-4.8 g/dL Lipase 34 12-53 U/L Assessment Progressive general weakness, multifactorial Cognitive dysfunction Chronic gait disturbance Chronic low back pain Polypharmacy Acute dehydration Leukocytosis, to rule out infection Plan/Recommendation Monitoring Supportive treatment Telemetry Urinalysis Blood culture Hydration Hold off pramipexole Sinemet 25/100 mg t.i.d. Entacapone 200mg mg t.i.d. GI prophylaxis DVT prophylaxis Up to chair Physical therapy Keep her appointment with me Follow up with [facility] More recommendation per clinical course Plan discussed with: Spouse, Other DAVID ANN MD September 09, 2024 22:09
[2024-09-09] MEDS: CEFEPIME 1GM/ 50ML 50 ML IV SCH (22:33)
[2024-09-09] MEDS: PRAMIPEXOLE DIHYDROCHLORIDE MO 0.25 MG TAB PO SCH (22:34)
[2024-09-09] MEDS: ALPRAZolam 0.25 MG TAB PO SCH (22:34)
[2024-09-09] MEDS: CARBIDOPA W LEVODOPA CR 25/100mg TABLET PO SCH (23:15)
[2024-09-10] VITALS (7 sets, daily range): BP systolic 136–167; BP diastolic 66–79; PULSE 59–70; RESP 16–19; TEMP 96.3–98; O2SAT 93–96
[2024-09-10 06:11] LABS: Basophils # (auto) 0 10 ^3/uL (0-0.2); Basophils % (auto) 0.3 % (0.0-2.0); Eosinophils # (auto) 0.1 10 ^3/uL (0-0.8); Eosinophils % (auto) 0.5 % (0.0-7.0); Hematocrit 42.6 % (36.0-46.0); Hemoglobin 14.4 g/dL (12.2-16.2); Lymphocytes # (auto) 1.6 10 ^3/uL (0.4-5.4); Lymphocytes % (auto) 14.6 % (10.0-50.0); Mean Corpuscular Hemoglobin 31.2 pg (28.0-32.0); Mean Corpuscular Hgb Conc. 33.8 g/dL (32.0-36.0); Mean Corpuscular Volume 92.2 fL (80.0-100.0); Monocytes # (auto) 0.6 10 ^3/uL (0-1.3); Monocytes % (auto) 5.6 % (0.0-12.0); Neutrophils # (auto) 8.4 10 ^3/uL (1.6-8.6); Nucleated Red Blood Cells % 0.1 %; Platelet Count (auto) 146 10^3/uL (140-450); Red Blood Cells 4.62 10^6/uL (4.0-5.20); Red Cell Distribution Width 14.9 % (11.8-14.3); White Blood Cell 10.7 10^3/uL (4.4-10.8)
[2024-09-10 06:37] LABS: Alanine Aminotransferase 12 U/L (7-40); Albumin 3.7 g/dL (3.2-4.8); Alkaline Phosphatase 58 U/L (46-116); Anion Gap 6 (5-15); Aspartate Aminotransferase 21 U/L (13-40); BUN/Creatinine Ratio 24.5 (10.0-20.0); Bilirubin, Total 0.9 mg/dL (0.2-1.0); Carbon Dioxide 26 mmol/L (20-31); Glucose 104 mg/dL (74-106); Potassium 4.5 mmol/L (3.5-5.1); Sodium 142 mmol/L (136-145); Total Protein 6.1 g/dL (5.7-8.2)
[2024-09-10 06:49] LABS: Blood Urea Nitrogen 24 mg/dL (9-23); Calcium 8.7 mg/dL (8.7-10.4); Chloride 110 mmol/L (98-107)
[2024-09-10] MEDS: METOPROLOL TARTRATE 25 MG TAB PO SCH (08:59)
[2024-09-10] MEDS: ENOXAPARIN SOD 40 MG/0.4 ML SYRINGE SC SCH (08:59)
[2024-09-10] MEDS: ATORVASTATIN 20 MG TAB PO SCH (08:59)
[2024-09-10] MEDS: PANTOPRAZOLE 40 MG/10 ML VIAL INJ IV SCH (08:59)
[2024-09-10] MEDS: SERTRALINE HCL 50 MG TAB PO SCH (09:00)
[2024-09-10] MEDS: CITALOPRAM HYDROBR 20 MG TAB PO SCH (09:00)
[2024-09-10] MEDS: FAMOTIDINE 20 MG TAB PO SCH (09:00)
[2024-09-10] MEDS: amLODIPine BESYLATE 5 MG TAB PO SCH (09:01)
[2024-09-10] MEDS ORDERED: PATIENTS OWN MEDICATION (Escitalopram Oxalate 1 TAB) PO SCH (10:00)
[2024-09-10] MEDS ORDERED: PATIENTS OWN MEDICATION (Famotidine 1 TAB) PO SCH (10:00)
[2024-09-10] MEDS ORDERED: SERTRALINE HCL PO SCH (10:00)
[2024-09-10] MEDS: ARIPIPRAZOLE 2 MG PO SCH (10:00)
[2024-09-10] MEDS ORDERED: CARBIDOPA W LEVODOPA CR 25/100mg TABLET PO SCH (10:00)
[2024-09-10] MEDS ORDERED: PATIENTS OWN MEDICATION (Donepezil Hydrochloride (Donepezil Hcl) 1 TAB) PO SCH (10:00)
[2024-09-10] MEDS: Rasagiline Mesylate 1 MG PO SCH (10:00)
--- NOTE | 2024-09-10 15:23 | DVHINCON2 ---
Date of service: September 10, [address] Lugo Reason for Consultation Abdominal pain generalized weakness back pain Parkinson's disease History of Present Illness This 73-year-old female with a history of hypertension hyperlipidemia Parkinson's admitted with complaints is admitted with the complaints of abdominal pain and generalized weakness and decreased appetite for about three days patient denied any diarrhea nausea diameter has nausea no vomiting since severe decreased patient had a CAT scan done which showed that there was evidence of possible mild scattered diverticulosis and small area of collapsed wall collapsed segment with wall thickening of the descending colon with possible colitis because the stranding around the lumen Denied any hematemesis melena no unusual food ingestion no history of any travel Is being seen by neurologist [facility] for neurological problems including Parkinson's Patient is on no other medication from [facility] vitamins and other herbs etc Past Medical History Hypertension hyperlipidemia anxiety Parkinson's osteoarthritis Past Surgical History Laminectomy Family History: Cardiovascular disease G8 MOTHER, Onset:Unknown Family History Unremarkable Social History Denies smoking drinks Allergies: Coded Allergies: Aspirin (Verified Allergy, Unknown, 11/04/22) Home Meds Reported Medications Buprenorphine (Buprenorphine) 5 Mcg/Hr Dis, TD 09/09/24 Sertraline HCl (Sertraline Hydrochloride) 200 Mg Cap, 1 TAB PO DAILY 06/06/24 Atorvastatin Calcium (ATORVASTATIN CALCIUM) 20 Mg Tab, 1 TAB PO DAILY 06/06/24 Amlodipine Besylate (Amlodipine Besylate) 5 Mg Tab, 1 TAB PO DAILY 06/06/24 Naproxen Sodium (ALEVE ARTHRITIS) 220 Mg Tab, 220 MG PO, TAB 11/05/22 Meclizine Hcl (Meclizine Hcl) 25 Mg Tab, 25 MG PO TIDPRN PRN for DIZZINESS for 30 Days, MG 11/05/22 Tizanidine Hydrochloride (Tizanidine Hcl) 4 Mg Tab, 1 TAB PO BIDPRN PRN for muscle spasm 11/05/22 Metoprolol Tartrate (Lopressor) 25 Mg Tb, 1 TAB PO DAILY 11/05/22 Naproxen (NAPROSYN TABLET) 500 Mg Tb, 1 TAB PO BID 11/05/22 Entacapone (ENTACAPONE) 200 Mg Tab, 1 TAB PO TID 11/05/22 Rasagiline Mesylate (Rasagiline Mesylate) 1 Mg Tab, 1 TAB PO DAILY 11/05/22 Aripiprazole (Aripiprazole) 2 Mg Tab, 1 TAB PO DAILY 11/05/22 Carbidopa-Levodopa (Carbidopa/Levodopa Er) 25 /100 Tab 11/05/22 Escitalopram Oxalate (ESCITALOPRAM OXALATE) 20 Mg Tab, 1 TAB PO DAILY 11/05/22 Alprazolam (Alprazolam) 0.25 Mg Tab, 0.5 TAB PO BID 11/05/22 Pramipexole Dihydrochloride (Mirapex Er) 0.75 Mg Tab, 1 MG 11/05/22 Donepezil Hydrochloride (DONEPEZIL HCL) 10 Mg Tab, 1 TAB PO DAILY 11/05/22 Famotidine (Famotidine) 40 Mg Tab, 1 TAB PO DAILY 11/05/22 Current Medications Current Medications Medications (Trade) Dose Ordered Sig/Acosta Route PRN Reason Start Time Stop Time Status Last Admin Fluticasone Propionate (Flonase [place]) 50 mcg Q12HR EACHNOSTRI 09/09/24 22:00 09/09/24 22:00 Metronidazole 100 ml @ 100 mls/hr Q8HR IV 09/09/24 22:00 09/10/24 14:44 Cefepime HCl 50 ml @ 12.5 mls/hr Q8HR IV 09/09/24 22:00 09/09/24 16:57 DC Enoxaparin Sodium (Lovenox) 40 mg DAILY SC 09/10/24 10:00 09/10/24 08:59 Alprazolam (Xanax Tablet) 0.125 mg BID PO 09/09/24 22:00 09/09/24 22:34 Amlodipine Besylate (Norvasc Tablet) 5 mg DAILY PO 09/10/24 10:00 09/10/24 09:01 Atorvastatin Calcium (Lipitor) 20 mg DAILY PO 09/10/24 10:00 09/10/24 08:59 Carbidopa/Levodopa (Sinemet Cr 25/ 100MG) 1 tab DAILY PO 09/10/24 10:00 09/09/24 23:14 DC Metoprolol Tartrate (Lopressor Tablet) 25 mg DAILY PO 09/10/24 10:00 09/10/24 08:59 Patient Own Medication 1 tab DAILY PO 09/10/24 10:00 Patient Own Medication 1 tab DAILY PO 09/10/24 10:00 UNV Patient Own Medication 1 tab TID PO 09/09/24 22:00 09/09/24 22:00 Patient Own Medication 1 tab DAILY PO 09/10/24 10:00 UNV Patient Own Medication 1 tab DAILY PO 09/10/24 10:00 UNV Patient Own Medication 1 tab DAILY PO 09/10/24 10:00 Patient Own Medication 1 tab DAILY PO 09/10/24 10:00 UNV Pramipexole Dihydrochloride (Mirapex Tablet) 0.75 mg HS PO 09/09/24 22:00 09/09/24 23:14 DC 09/09/24 22:34 Pantoprazole Sodium (Protonix) 40 mg DAILY IV 09/10/24 10:00 09/10/24 08:59 Donepezil HCl (Aricept Tablet) 10 mg HS PO 09/09/24 22:00 09/09/24 22:00 Citalopram Hydrobromide (CeleXA TABLET) 40 mg DAILY PO 09/10/24 10:00 09/10/24 09:00 Famotidine (Pepcid Tablet) 20 mg DAILY PO 09/10/24 10:00 09/10/24 09:00 Sertraline HCl (Zoloft) 200 mg DAILY PO 09/10/24 10:00 09/10/24 09:00 Cefepime HCl 50 ml @ 12.5 mls/hr Q12HR IV 09/09/24 22:00 09/09/24 22:49 Carbidopa/Levodopa (Sinemet Cr 25/ 100MG) 1 tab TID PO 09/09/24 23:15 09/10/24 14:44 Review of Systems Noncontributory Vital Signs Vital Signs Date Time Temp Pulse Resp B/P (MAP) Pulse Ox O2 Delivery O2 Flow Rate FiO2 09/10/24 13:00 97.5 63 16 146/71 (96) 95 97.5 09/10/24 08:00 Room Air* 0 21 Physical Exam Moderately built and nourished female in no acute distress but chronically ill looking Vitals stable Lungs clear Cardiovascular unremarkable Abdomen is soft mild tenderness diffuse especially in the left upper quadrant no rigidity no guarding no masses Bowel sounds normal Extremities no edema Neuro Parkinson's Labs/Diagnostic Data Labs Test 09/10/24 05:14 09/09/24 11:53 09/09/24 10:59 Range/Units White Blood Count 10.7 # 4.4-10.8 10^3/uL Red Blood Count 4.62 4.0-5.20 10^6/uL Hemoglobin 14.4 12.2-16.2 g/dL Hematocrit 42.6 36.0-46.0 % Mean Corpuscular Volume 92.2 80.0-100.0 fL Mean Corpuscular Hemoglobin 31.2 28.0-32.0 pg Mean Corpuscular Hemoglobin Concent 33.8 32.0-36.0 g/dL Red Cell Distribution Width 14.9 H 11.8-14.3 % Platelet Count 146 140-450 10^3/uL Mean Platelet Volume 8.9 6.9-10.8 fL Neutrophils (%) (Auto) 79.0 37.0-80.0 % Lymphocytes (%) (Auto) 14.6 10.0-50.0 % Monocytes (%) (Auto) 5.6 0.0-12.0 % Eosinophils (%) (Auto) 0.5 0.0-7.0 % Basophils (%) (Auto) 0.3 0.0-2.0 % Neutrophils # (Auto) 8.4 1.6-8.6 10 ^3/uL Lymphocytes # (Auto) 1.6 0.4-5.4 10 ^3/uL Monocytes # (Auto) 0.6 0-1.3 10 ^3/uL Eosinophils # (Auto) 0.1 0-0.8 10 ^3/uL Basophils # (Auto) 0 0-0.2 10 ^3/uL Nucleated Red Blood Cells 0.1 % Sodium Level 142 136-145 mmol/L Potassium Level 4.5 3.5-5.1 mmol/L Chloride Level 110 H 98-107 mmol/L Carbon Dioxide Level 26 20-31 mmol/L Anion Gap 6 5-15 Blood Urea Nitrogen 24 H 9-23 mg/dL Creatinine 0.98 0.550-1.02 mg/dL Glomerular Filtration Rate Calc 61 >90 mL/min BUN/Creatinine Ratio 24.5 H 10.0-20.0 Serum Glucose 104 74-106 mg/dL Calcium Level 8.7 8.7-10.4 mg/dL Total Bilirubin 0.9 0.2-1.0 mg/dL Aspartate Amino Transferase (AST) 21 13-40 U/L Alanine Aminotransferase (ALT) 12 7-40 U/L Alkaline Phosphatase 58 46-116 U/L Total Protein 6.1 5.7-8.2 g/dL Albumin 3.7 3.2-4.8 g/dL Troponin I High Sensitivity 6 </=34 ng/L Platelet Estimate Adequate Clumped Platelets None Lactic Acid Level 1.7 0.4-2.0 mmol/L B-Type Natriuretic Peptide 96.16 0-100 pg/mL Lipase 34 12-53 U/L Microbiology Date/Time Source Procedure Growth Status 09/09/24 10:59 Blood Blood Culture - Preliminary NO GROWTH AFTER 24 HOURS OF INCUBATION. Resulted Assessment 73-year-old Parkinson's COPD hypertension hyperlipidemia admitted with complaints of back pain as well as left upper quadrant and other abdominal pain with nausea decreased appetite has history of Parkinson's admitted followed by Neurology patient is advised some endoscopic workup but apparently she refused in the past. Has denied any weight loss no history of any unusual food ingestion no history of any travel no diarrhea but anorexia and nausea Clinical impression possible gastroenteritis Can showed some mild thickening in the descending colon other pathology can not be excluded Plan/Recommendation will recommend stool studies IV antibiotics Infectious disease consult if possible If Symptoms persist may need repeat CAT scan with IV and oral dye and decide about even endoscopic evaluation of the colon Thank you Dr. Kingsley Plan discussed with: Patient SEVERO KINGSLEY MD September 10, 2024 15:23
--- NOTE | 2024-09-10 18:37 | DVHPN2 ---
Progress Note - Dictate Date Seen: September 10, 2024 Medical Necessity Reason Pt with a Central, PICC or Fol: No Subjective Ms. Rodríguez is a right-handed female with a history of hypertension, diabetes, depression, chronic low back pain she was brought to the [facility] on 09/09/2024 with a chief company of general weakness. I have seen and examined the patient, I have discussed with her nurse, she was awake, very pleasant, oriented to person, place, she follows verbal commands, poor historian Reports for my office VitB12, 07/2022: 318, 12/2022: 251 Homocysteine 02/2023: 17.9 Methylmalonic acid, : 141 TSH, 12/2022: 4.93 EEG, 01/02/23: Normal 1 hour EEG Chest x-ray, 09/09/2024: Cardiomegaly with small left pleural effusion and left basilar opacity MRI head, 12/2022: Absence swallow tail sign within the substantia nigra, Finding are commonly attributable to Parkinsons disease Blood culture, 09/09/2024: WBC/HB/PLT/MCV, 09/09/2024: 14.7/14.8/179/91.9 BUN/CR, 09/09/2024: 30/1.08, 09/10/24: 24/0.98 Liver function tests, 09/10/24: Unremarkable TG/HDL/LDL/HDL, 06/06/2024: 102/209/137/59 Chest x-ray, 09/09/24 Cardiomegaly with small left pleural effusion and left basilar opacity CT head, 09/09/2024: 1. Mild global brain atrophy without evidence of acute intracranial process. 2. Enlargement of the sella in the cephalocaudal dimension. Consider follow-up noncontrast MRI of the brain on a nonemergent basis for better characterization. 3. Mild paranasal sinus disease vital signs Vital Sign Date Time Temp Pulse Resp B/P (MAP) Pulse Ox O2 Delivery O2 Flow Rate FiO2 09/10/24 17:00 97.7 64 19 136/79 (98) 93 97.7 09/10/24 08:00 Room Air* 0 21 Total Intake and Output 09/09/24 09/09/24 09/10/24 15:00 23:00 07:00 Intake Total 1000 ml 212.5 ml 125.0 ml Output Total 0 ml Balance 1000 ml 212.5 ml 125.0 ml medications Current Medications Medications Dose Ordered Sig/Acosta Route Start Time Stop Time Status Last Admin Dose Admin Fluticasone Propionate 50 mcg Q12HR EACHNOSTRI 09/09/24 22:00 09/09/24 22:00 50 MCG Metronidazole 100 ml @ 100 mls/hr Q8HR IV 09/09/24 22:00 09/10/24 14:44 100 MLS/HR Ondansetron HCl 4 mg Q4HP PRN IV 09/09/24 14:45 Enoxaparin Sodium 40 mg DAILY SC 09/10/24 10:00 09/10/24 08:59 40 MG Acetaminophen 650 mg Q6HP PRN PO 09/09/24 14:45 09/09/24 20:41 650 MG Alprazolam 0.125 mg BID PO 09/09/24 22:00 09/09/24 22:34 0.125 MG Amlodipine Besylate 5 mg DAILY PO 09/10/24 10:00 09/10/24 09:01 5 MG Atorvastatin Calcium 20 mg DAILY PO 09/10/24 10:00 09/10/24 08:59 20 MG Metoprolol Tartrate 25 mg DAILY PO 09/10/24 10:00 09/10/24 08:59 25 MG Patient Own Medication 1 tab DAILY PO 09/10/24 10:00 Patient Own Medication 1 tab DAILY PO 09/10/24 10:00 UNV Patient Own Medication 1 tab TID PO 09/09/24 22:00 09/09/24 22:00 1 TAB Patient Own Medication 1 tab DAILY PO 09/10/24 10:00 UNV Patient Own Medication 1 tab DAILY PO 09/10/24 10:00 UNV Patient Own Medication 1 tab DAILY PO 09/10/24 10:00 Patient Own Medication 1 tab DAILY PO 09/10/24 10:00 UNV Pantoprazole Sodium 40 mg DAILY IV 09/10/24 10:00 09/10/24 08:59 40 MG Donepezil HCl 10 mg HS PO 09/09/24 22:00 09/09/24 22:00 10 MG Citalopram Hydrobromide 40 mg DAILY PO 09/10/24 10:00 09/10/24 09:00 40 MG Famotidine 20 mg DAILY PO 09/10/24 10:00 09/10/24 09:00 20 MG Sertraline HCl 200 mg DAILY PO 09/10/24 10:00 09/10/24 09:00 200 MG Cefepime HCl 50 ml @ 12.5 mls/hr Q12HR IV 09/09/24 22:00 09/09/24 22:49 12.5 MLS/HR Carbidopa/Levodopa 1 tab TID PO 09/09/24 23:15 09/10/24 14:44 1 TAB objective General: the patient is well developed and nourished. No acute distress. MENTAL STATUS: Subjective SPEECH, LANGUAGE, HIGHER CORTICAL FUNCTION: no aphasia or dysathria. CRANIAL NERVES:Pupils are equal, round and reactive. EOMs full and conjugate. Facial sensation intact in all three divisions bilaterally. Mandibular strength intact. Facial muscles symmetrical and strength intact. SENSATION: Sensation to touch and pinprick is normal. MOTOR: Normal tone in the upper and lower extremity. Normal muscle bulk. No fasciculations. Mild tremors on posturing. Muscle strength of the major groups in the extremities is 4/5. REFLEXES: Deep tendon reflexes are symmetrical. No pathological reflexes. CEREBELLAR/COORDINATION: Finger to nose is unremarkable bilaterally GAIT/STATION: deferred laboratory and microbiology Laboratory Tests 09/10/24 05:14 Test 09/10/24 05:14 Range/Units Serum Glucose 104 74-106 mg/dL Problem List Progressive general weakness, multifactorial Cognitive dysfunction Chronic gait disturbance Chronic low back pain Polypharmacy Acute dehydration Leukocytosis, to rule out infection Assessment/Plan Monitoring Supportive treatment Telemetry Urinalysis Blood culture Hydration Hold off pramipexole Sinemet 25/100 mg t.i.d. Entacapone 200mg mg t.i.d. GI prophylaxis DVT prophylaxis Up to chair Physical therapy Keep her appointment with me Follow up with [facility] I may consider modifying her Parkinson's treatment in my office More recommendation per clinical course Prognosis poor Dietary Evaluation Review Comments: 1. Refer to nursing to assit feeding. 2. Monitor PO intake to meet 75% of her needs Expected Outcomes/Goals: Eat 3 meals/d, avoid fast wt loss. Plan discussed with: Other Total Time (mins): 35 DAVID ANN MD September 10, 2024 18:37
--- NOTE | 2024-09-10 20:21 | DVHPN2 ---
Subjective 73-year-old female was admitted for abdominal pain and weakness for 3 days. The abdominal pain is in the left upper and lower quadrants associated with nausea and decreased appetite and generalized weakness The says she is so weak he is not able to provide care for her The CT scan of the abdomen showed possible colitis Changes from previous H/P or p: Changes Objective Vitals Vital Signs Date Time Temp Pulse Resp B/P (MAP) Pulse Ox O2 Delivery O2 Flow Rate FiO2 09/10/24 17:00 97.7 64 19 136/79 (98) 93 97.7 09/10/24 08:00 Room Air* 0 21 Intake/Output Intake and Output 09/10/24 07:00 Intake Total 1337.5 ml Output Total 0 ml Balance 1337.5 ml Intake Oral 0 ml IV Total 1337.5 ml Output Urine Total 0 ml General Appearance: Alert, Oriented X3, Cooperative Lungs: Clear to auscultation, Normal air movement Cardiovascular: Regular rate, Normal S1, Normal S2, No murmurs Abdomen: Normal bowel sounds, Soft, Other (Tenderness in the left lower quadrant) Extremities: No edema Medications Current Medications Medications Dose Ordered Sig/Acosta Route Start Time Stop Time Status Last Admin Dose Admin Fluticasone Propionate 50 mcg Q12HR EACHNOSTRI 09/09/24 22:00 09/09/24 22:00 50 MCG Metronidazole 100 ml @ 100 mls/hr Q8HR IV 09/09/24 22:00 09/10/24 14:44 100 MLS/HR Ondansetron HCl 4 mg Q4HP PRN IV 09/09/24 14:45 Enoxaparin Sodium 40 mg DAILY SC 09/10/24 10:00 09/10/24 08:59 40 MG Acetaminophen 650 mg Q6HP PRN PO 09/09/24 14:45 09/09/24 20:41 650 MG Alprazolam 0.125 mg BID PO 09/09/24 22:00 09/09/24 22:34 0.125 MG Amlodipine Besylate 5 mg DAILY PO 09/10/24 10:00 09/10/24 09:01 5 MG Atorvastatin Calcium 20 mg DAILY PO 09/10/24 10:00 09/10/24 08:59 20 MG Metoprolol Tartrate 25 mg DAILY PO 09/10/24 10:00 09/10/24 08:59 25 MG Patient Own Medication 1 tab DAILY PO 09/10/24 10:00 Patient Own Medication 1 tab DAILY PO 09/10/24 10:00 UNV Patient Own Medication 1 tab TID PO 09/09/24 22:00 09/09/24 22:00 1 TAB Patient Own Medication 1 tab DAILY PO 09/10/24 10:00 UNV Patient Own Medication 1 tab DAILY PO 09/10/24 10:00 UNV Patient Own Medication 1 tab DAILY PO 09/10/24 10:00 Patient Own Medication 1 tab DAILY PO 09/10/24 10:00 UNV Pantoprazole Sodium 40 mg DAILY IV 09/10/24 10:00 09/10/24 08:59 40 MG Donepezil HCl 10 mg HS PO 09/09/24 22:00 09/09/24 22:00 10 MG Citalopram Hydrobromide 40 mg DAILY PO 09/10/24 10:00 09/10/24 09:00 40 MG Famotidine 20 mg DAILY PO 09/10/24 10:00 09/10/24 09:00 20 MG Sertraline HCl 200 mg DAILY PO 09/10/24 10:00 09/10/24 09:00 200 MG Cefepime HCl 50 ml @ 12.5 mls/hr Q12HR IV 09/09/24 22:00 09/09/24 22:49 12.5 MLS/HR Carbidopa/Levodopa 1 tab TID PO 09/09/24 23:15 09/10/24 14:44 1 TAB Laboratory Results Laboratory Tests 09/10/24 05:14 Chemistry Test 09/10/24 05:14 Albumin 3.7 g/dL (3.2-4.8) Calcium Level 8.7 mg/dL (8.7-10.4) Total Protein 6.1 g/dL (5.7-8.2) LFT Test 09/10/24 05:14 Alanine Aminotransferase (ALT) 12 U/L (7-40) Alkaline Phosphatase 58 U/L (46-116) Aspartate Amino Transferase (AST) 21 U/L (13-40) Total Bilirubin 0.9 mg/dL (0.2-1.0) Microbiology Microbiology Date/Time Source Procedure Growth Status 09/09/24 10:59 Blood Blood Culture - Preliminary NO GROWTH AFTER 24 HOURS OF INCUBATION. Resulted Assessment/Plan Assessment/Plan Abdominal pain most likely due to acute colitis versus gastroenteritis Generalized weakness Chronic low back pain Parkinson's disease Hypertension Mixed hyperlipidemia Left pleural effusion Cardiomegaly Plan Change the diet to clear liquids IV antibiotics Consult GI Resume the home medications Monitor the patient closely Full code Plan discussed with: Patient My Orders Orders - NGA GARCIA MD Procedure Category Date Status Time Clear Liq Diet DIET 09/10/24 Transmitted Lunch * [facility] Controlled Atmospheric Furnace CONS 09/10/24 Transmitted 12:15 Date of Service: September 10, 2024 Billing Provider: NGA GARCIA MD Common Visit Codes: NOT BILLABLE NGA GARCIA MD September 10, 2024 20:21
[2024-09-11] VITALS (8 sets, daily range): BP systolic 149–172; BP diastolic 59–77; PULSE 64–72; RESP 17–19; TEMP 95.4–98.5; O2SAT 92–97
[2024-09-11 06:20] LABS: Basophils # (auto) 0 10 ^3/uL (0-0.2); Basophils % (auto) 0.3 % (0.0-2.0); Eosinophils # (auto) 0.1 10 ^3/uL (0-0.8); Eosinophils % (auto) 0.9 % (0.0-7.0); Hematocrit 45.3 % (36.0-46.0); Lymphocytes # (auto) 2.3 10 ^3/uL (0.4-5.4); Lymphocytes % (auto) 27.1 % (10.0-50.0); Mean Corpuscular Hemoglobin 30.5 pg (28.0-32.0); Mean Corpuscular Hgb Conc. 33.1 g/dL (32.0-36.0); Mean Corpuscular Volume 92.1 fL (80.0-100.0); Monocytes # (auto) 0.5 10 ^3/uL (0-1.3); Monocytes % (auto) 6.1 % (0.0-12.0); Neutrophils # (auto) 5.6 10 ^3/uL (1.6-8.6); Neutrophils % (auto) 65.6 % (37.0-80.0); Nucleated Red Blood Cells % 0.3 %; Platelet Count (auto) 104 10^3/uL (140-450); Red Blood Cells 4.91 10^6/uL (4.0-5.20); Red Cell Distribution Width 14.9 % (11.8-14.3); White Blood Cell 8.5 10^3/uL (4.4-10.8)
[2024-09-11 06:37] LABS: Potassium 3.9 mmol/L (3.5-5.1); Sodium 142 mmol/L (136-145)
[2024-09-11 06:38] LABS: Anion Gap 7 (5-15); Carbon Dioxide 24 mmol/L (20-31)
[2024-09-11 06:43] LABS: BUN/Creatinine Ratio 21.1 (10.0-20.0); Blood Urea Nitrogen 19 mg/dL (9-23); Glucose 102 mg/dL (74-106); Magnesium 2.2 mg/dL (1.6-2.6)
[2024-09-11 06:54] LABS: Calcium 8.7 mg/dL (8.7-10.4); Chloride 111 mmol/L (98-107)
--- NOTE | 2024-09-11 15:37 | DVHPN2 ---
Subjective Better She is hungry and would like to try a diet Complains of pain in the right hip Changes from previous H/P or p: Changes Objective Vitals Vital Signs Date Time Temp Pulse Resp B/P (MAP) Pulse Ox O2 Delivery O2 Flow Rate FiO2 09/11/24 13:00 98.1 64 19 158/59 (92) 93 98.1 09/11/24 08:00 Room Air* 0 21 Intake/Output Intake and Output 09/11/24 07:00 Intake Total 975 ml Output Total 0 ml Balance 975 ml Intake Oral 800 ml IV Total 175 ml Output Urine Total 0 ml # Voids 1 General Appearance: Alert, Oriented X3, Cooperative Lungs: Clear to auscultation, Normal air movement Cardiovascular: Regular rate, Normal S1, Normal S2, No murmurs Abdomen: Normal bowel sounds, Soft, Other (Tenderness in the left lower quadrant) Extremities: No edema Medications Current Medications Medications Dose Ordered Sig/Acosta Route Start Time Stop Time Status Last Admin Dose Admin Fluticasone Propionate 50 mcg Q12HR EACHNOSTRI 09/09/24 22:00 09/09/24 22:00 50 MCG Metronidazole 100 ml @ 100 mls/hr Q8HR IV 09/09/24 22:00 09/11/24 12:54 100 MLS/HR Ondansetron HCl 4 mg Q4HP PRN IV 09/09/24 14:45 Enoxaparin Sodium 40 mg DAILY SC 09/10/24 10:00 09/11/24 09:23 40 MG Acetaminophen 650 mg Q6HP PRN PO 09/09/24 14:45 09/11/24 05:28 650 MG Alprazolam 0.125 mg BID PO 09/09/24 22:00 09/11/24 09:23 0.125 MG Amlodipine Besylate 5 mg DAILY PO 09/10/24 10:00 09/11/24 09:24 5 MG Atorvastatin Calcium 20 mg DAILY PO 09/10/24 10:00 09/11/24 09:23 20 MG Metoprolol Tartrate 25 mg DAILY PO 09/10/24 10:00 09/11/24 09:24 25 MG Patient Own Medication 1 tab DAILY PO 09/10/24 10:00 Patient Own Medication 1 tab DAILY PO 09/10/24 10:00 UNV Patient Own Medication 1 tab TID PO 09/09/24 22:00 09/09/24 22:00 1 TAB Patient Own Medication 1 tab DAILY PO 09/10/24 10:00 UNV Patient Own Medication 1 tab DAILY PO 09/10/24 10:00 UNV Patient Own Medication 1 tab DAILY PO 09/10/24 10:00 Patient Own Medication 1 tab DAILY PO 09/10/24 10:00 UNV Pantoprazole Sodium 40 mg DAILY IV 09/10/24 10:00 09/11/24 09:22 40 MG Donepezil HCl 10 mg HS PO 09/09/24 22:00 09/10/24 21:48 10 MG Citalopram Hydrobromide 40 mg DAILY PO 09/10/24 10:00 09/11/24 09:24 40 MG Famotidine 20 mg DAILY PO 09/10/24 10:00 09/11/24 09:24 20 MG Sertraline HCl 200 mg DAILY PO 09/10/24 10:00 09/11/24 09:24 200 MG Cefepime HCl 50 ml @ 12.5 mls/hr Q12HR IV 09/09/24 22:00 09/11/24 09:23 12.5 MLS/HR Carbidopa/Levodopa 1 tab TID PO 09/09/24 23:15 09/11/24 12:54 1 TAB Laboratory Results Laboratory Tests 09/11/24 05:36 Chemistry Test 09/11/24 05:36 Calcium Level 8.7 mg/dL (8.7-10.4) Magnesium Level 2.2 mg/dL (1.6-2.6) Microbiology Microbiology Date/Time Source Procedure Growth Status 09/09/24 10:59 Blood Blood Culture - Preliminary NO GROWTH AFTER 48 HOURS OF INCUBATION. Resulted Assessment/Plan Assessment/Plan Abdominal pain most likely due to acute colitis versus gastroenteritis Generalized weakness Chronic low back pain Parkinson's disease Hypertension Mixed hyperlipidemia Left pleural effusion Cardiomegaly Plan Change the diet to clear liquids IV antibiotics Consult GI Resume the home medications Monitor the patient closely Full code 09/11/2024: Advance diet to soft Hypertension: Continue the home meds, add hydralazine p.r.n. Colitis: Continue cefepime and Flagyl IV Resume the home medications including Sinemet Physical therapy evaluation Monitor closely Discussed with the at the bedside X-ray of the right hip and the pelvis Plan discussed with: Patient, Spouse My Orders Orders - NGA GARCIA MD Procedure Category Date Status Time Soft Diet DIET 09/11/24 Transmitted Dinner Date of Service: September 11, 2024 Billing Provider: NGA GARCIA MD Common Visit Codes: NOT BILLABLE NGA GARCIA MD September 11, 2024 15:37
[2024-09-11] MEDS: hydrALAZINE HCL 20 MG/ML VL IV PRN (16:55)
--- NOTE | 2024-09-11 19:00 | DVH ---
CLINICAL INDICATION: pain TECHNIQUE: 2 radiographic views of the right hip were obtained. Comparison: None FINDINGS/IMPRESSION: There is no evidence of acute fracture or dislocation. The visualized joint space is well maintained. The alignment is anatomical. There is no radiopaque foreign body.
--- NOTE | 2024-09-11 20:17 | DVHPN2 ---
Progress Note - Dictate Date Seen: September 11, 2024 Medical Necessity Reason Pt with a Central, PICC or Fol: No Subjective Patient's abdominal symptoms are much better no nausea no vomiting no diarrhea no bleeding Has got right hip pain vital signs Vital Sign Date Time Temp Pulse Resp B/P (MAP) Pulse Ox O2 Delivery O2 Flow Rate FiO2 09/11/24 17:00 97.3 67 19 149/68 (95) 94 97.3 09/11/24 08:00 Room Air* 0 21 Total Intake and Output 09/10/24 09/10/24 09/11/24 15:00 23:00 07:00 Intake Total 125 ml 850 ml Output Total 0 ml 0 ml Balance 0 ml 125 ml 850 ml medications Current Medications Medications Dose Ordered Sig/Acosta Route Start Time Stop Time Status Last Admin Dose Admin Fluticasone Propionate 50 mcg Q12HR EACHNOSTRI 09/09/24 22:00 09/09/24 22:00 50 MCG Metronidazole 100 ml @ 100 mls/hr Q8HR IV 09/09/24 22:00 09/11/24 12:54 100 MLS/HR Ondansetron HCl 4 mg Q4HP PRN IV 09/09/24 14:45 Enoxaparin Sodium 40 mg DAILY SC 09/10/24 10:00 09/11/24 09:23 40 MG Acetaminophen 650 mg Q6HP PRN PO 09/09/24 14:45 09/11/24 17:23 650 MG Alprazolam 0.125 mg BID PO 09/09/24 22:00 09/11/24 09:23 0.125 MG Amlodipine Besylate 5 mg DAILY PO 09/10/24 10:00 09/11/24 09:24 5 MG Atorvastatin Calcium 20 mg DAILY PO 09/10/24 10:00 09/11/24 09:23 20 MG Metoprolol Tartrate 25 mg DAILY PO 09/10/24 10:00 09/11/24 09:24 25 MG Patient Own Medication 1 tab DAILY PO 09/10/24 10:00 Patient Own Medication 1 tab DAILY PO 09/10/24 10:00 UNV Patient Own Medication 1 tab TID PO 09/09/24 22:00 09/09/24 22:00 1 TAB Patient Own Medication 1 tab DAILY PO 09/10/24 10:00 UNV Patient Own Medication 1 tab DAILY PO 09/10/24 10:00 UNV Patient Own Medication 1 tab DAILY PO 09/10/24 10:00 Patient Own Medication 1 tab DAILY PO 09/10/24 10:00 UNV Pantoprazole Sodium 40 mg DAILY IV 09/10/24 10:00 09/11/24 09:22 40 MG Donepezil HCl 10 mg HS PO 09/09/24 22:00 09/10/24 21:48 10 MG Citalopram Hydrobromide 40 mg DAILY PO 09/10/24 10:00 09/11/24 09:24 40 MG Famotidine 20 mg DAILY PO 09/10/24 10:00 09/11/24 09:24 20 MG Sertraline HCl 200 mg DAILY PO 09/10/24 10:00 09/11/24 09:24 200 MG Cefepime HCl 50 ml @ 12.5 mls/hr Q12HR IV 09/09/24 22:00 09/11/24 09:23 12.5 MLS/HR Carbidopa/Levodopa 1 tab TID PO 09/09/24 23:15 09/11/24 12:54 1 TAB Hydralazine HCl 10 mg Q6HP PRN IV 09/11/24 15:45 09/11/24 16:55 10 MG objective Abdomen is soft no tenderness no rigidity no guarding no masses laboratory and microbiology Laboratory Tests 09/11/24 05:36 Test 09/11/24 05:36 Range/Units Serum Glucose 102 74-106 mg/dL Assessment/Plan 73-year-old Parkinson's COPD hypertension hyperlipidemia admitted with complaints of back pain as well as left upper quadrant and other abdominal pain with nausea decreased appetite has history of Parkinson's admitted followed by Neurology patient is advised some endoscopic workup but apparently she refused in the past. Has denied any weight loss no history of any unusual food ingestion no history of any travel no diarrhea but anorexia and nausea Clinical impression possible gastroenteritis Can showed some mild thickening in the descending colon other pathology can not be excluded He is feeling much better now and we will recommend to continue with increasing the diet slowly and follow up will recommend definitely a colon evaluation as an outpatient when more stable Thank you Dr. Kinsgley Dietary Evaluation Review Comments: 1. Refer to nursing to assit feeding. 2. Monitor PO intake to meet 75% of her needs Expected Outcomes/Goals: Eat 3 meals/d, avoid fast wt loss. Plan discussed with: Patient SEVERO KINGSLEY MD September 11, 2024 20:17
[2024-09-12 01:00] VITALS: BP 186/80; PULSE 66; RESP 17; TEMP 97.9; O2SAT 93
[2024-09-12 05:00] VITALS: BP_SYST 132; BP_SYST 156; BP_DIAS 69; BP_DIAS 72; PULSE 68; PULSE 74; RESP 17; RESP 18; TEMP 98; TEMP 98.2; O2SAT 96; O2SAT 98
[2024-09-12 08:00] VITALS: RESP 18
[2024-09-12 09:00] VITALS: BP 165/69; PULSE 80; RESP 20; TEMP 98.3; O2SAT 94
[2024-09-12] MEDS ORDERED: METR-344 PO (09:34)
[2024-09-12] MEDS ORDERED: CIPR-273 PO (09:34)
--- NOTE | 2024-09-12 13:39 | DVHDS2 ---
Discharge Summary Date of Admission September 09, 2024 at 14:35 Date of Discharge: September 12, 2024 Labs/Diagnostic Data: Laboratory Results Test 09/11/24 05:36 09/10/24 05:14 09/09/24 11:53 09/09/24 10:59 White Blood Count 8.5 10^3/uL (4.4-10.8) Red Blood Count 4.91 10^6/uL (4.0-5.20) Hemoglobin 15.0 g/dL (12.2-16.2) Hematocrit 45.3 % (36.0-46.0) Mean Corpuscular Volume 92.1 fL (80.0-100.0) Mean Corpuscular Hemoglobin 30.5 pg (28.0-32.0) Mean Corpuscular Hemoglobin Concent 33.1 g/dL (32.0-36.0) Red Cell Distribution Width 14.9 % (11.8-14.3) Platelet Count 104 10^3/uL (140-450) Mean Platelet Volume 8.1 fL (6.9-10.8) Neutrophils (%) (Auto) 65.6 % (37.0-80.0) Lymphocytes (%) (Auto) 27.1 % (10.0-50.0) Monocytes (%) (Auto) 6.1 % (0.0-12.0) Eosinophils (%) (Auto) 0.9 % (0.0-7.0) Basophils (%) (Auto) 0.3 % (0.0-2.0) Neutrophils # (Auto) 5.6 10 ^3/uL (1.6-8.6) Lymphocytes # (Auto) 2.3 10 ^3/uL (0.4-5.4) Monocytes # (Auto) 0.5 10 ^3/uL (0-1.3) Eosinophils # (Auto) 0.1 10 ^3/uL (0-0.8) Basophils # (Auto) 0 10 ^3/uL (0-0.2) Nucleated Red Blood Cells 0.3 % Sodium Level 142 mmol/L (136-145) Potassium Level 3.9 mmol/L (3.5-5.1) Chloride Level 111 mmol/L (98-107) Carbon Dioxide Level 24 mmol/L (20-31) Anion Gap 7 (5-15) Blood Urea Nitrogen 19 mg/dL (9-23) Creatinine 0.90 mg/dL (0.550-1.02) Glomerular Filtration Rate Calc 67 mL/min (>90) BUN/Creatinine Ratio 21.1 (10.0-20.0) Serum Glucose 102 mg/dL (74-106) Calcium Level 8.7 mg/dL (8.7-10.4) Magnesium Level 2.2 mg/dL (1.6-2.6) Total Bilirubin 0.9 mg/dL (0.2-1.0) Aspartate Amino Transferase (AST) 21 U/L (13-40) Alanine Aminotransferase (ALT) 12 U/L (7-40) Alkaline Phosphatase 58 U/L (46-116) Total Protein 6.1 g/dL (5.7-8.2) Albumin 3.7 g/dL (3.2-4.8) Troponin I High Sensitivity 6 ng/L (</=34) Platelet Estimate Adequate Clumped Platelets None Lactic Acid Level 1.7 mmol/L (0.4-2.0) B-Type Natriuretic Peptide 96.16 pg/mL (0-100) Lipase 34 U/L (12-53) Other Laboratory Tests 09/11/24 05:36 Brief Hx & Hospital Course: Final diagnoses: Abdominal pain most likely due to acute colitis versus gastroenteritis Generalized weakness Chronic low back pain Parkinson's disease Hypertension Mixed hyperlipidemia Left pleural effusion Cardiomegaly 73-year-old female who was admitted for abdominal pain and right hip pain and weakness and altered level of consciousness She was diagnosed with colitis and was started on IV antibiotics and was put on clear liquid diet The next day her came and said that she has not been eating well and he wanted her to eat, we tried to explain to him that she needs some bowel rest for a day or 2 until her colitis better but he insisted and therefore she was started on a soft diet yesterday and then overnight until this morning she was having more abdominal pain, although she has no nausea or vomiting or diarrhea Her right hip pain was evaluated also with an x-ray which showed no injuries or fractures He reported that at home she almost fell before she came here but she never actually had any injury to the hip because he was helping her This morning the patient was complaining of abdominal pain and her was at bedside and he said he would like to take her home because here she is not resting in the hospital, we explained to him that we can put her on clear liquid diet again for a day or 2 until her colitis better but he said he would like to do that at home, he said he will give her clear liquid diet for 2-3 days at home and then advance her diet slowly as tolerated and in the meantime he will give her the antibiotics and therefore the patient will be discharged home today Discharged home on Cipro and Flagyl for 10 days Clear liquid diet for 2 days then advance as tolerated Continue the other treatments and the other home medications as before Order home health safety evaluation Follow up with the primary care physician as soon as possible Condition at Discharge: Stable Final Diagnosis/Problems List Abdominal pain most likely due to acute colitis versus gastroenteritis Generalized weakness Chronic low back pain Parkinson's disease Hypertension Mixed hyperlipidemia Left pleural effusion Cardiomegaly Discharge Disposition: Home SNF Discharge Will this Physician continue t: No Discharge Instruct/Medications Diet: See Comment Diet comment: Clear liquids x 2 days Advance slowly as tolerated Activity: No Restrictions, As Tolerated Follow Up/Referral: PCP [facility] Medications: Cipro + Flagyl x 10 days Resume home meds Discharge Statement: "Patient was advised to return to the ER or call 911 if any headaches, dizziness, shortness of breath, chest pain, abdominal pain, bleeding, fevers, or worsening of medical condition. Patient was counseled about treatment plan, medications, possible side effects, patientverbalized understanding. All questions were answered to the best of my ability. This discharge took greater then 30 minutes in planning, reviewing documentation, counseling the patient, and discussing with other team members." ASSESSMENT ASSESSMENT Assessment Acute coolitis Date of Service: September 12, 2024 Billing Provider: NGA GARCIA MD Common Visit Codes: NOT BILLABLE NGA GARCIA MD September 12, 2024 13:39
== END 2024-09-12 11:30 | disposition home or self-care (01) | DRG 392 ==
LOC: EDBD 10:13 → EDSEX 10:13 → ER 10:13 → OVERFLOW 14:35 → CENTRAL 09-10 01:40
PROVIDERS: ADMIT Internal Medicine Geriatric Medicine
DX: K52.9 Noninfective gastroenteritis and colitis, unspecified (principal); J90 Pleural effusion, not elsewhere classified; N17.9 Acute kidney failure, unspecified; F02.84 Dementia in other diseases classified elsewhere, unspecified severity, with anxiety; D25.9 Leiomyoma of uterus, unspecified; G20.A1 Parkinson's disease without dyskinesia, without mention of fluctuations; E78.2 Mixed hyperlipidemia; I10 Essential (primary) hypertension; G89.29 Other chronic pain; E11.9 Type 2 diabetes mellitus without complications; R29.6 Repeated falls; Z88.6 Allergy status to analgesic agent; Z82.49 Family history of ischemic heart disease and other diseases of the circulatory system; Z79.899 Other long term (current) drug therapy; J44.9 Chronic obstructive pulmonary disease, unspecified
CPT/HCPCS: 36415; 70450; 71045; 73502; 74176; 80048; 80053; 83605; 83690; 83735; 83880; 84484; 85025; 87040; 93005; 97163; 97530; G0378; J2470; J3490